=== PATIENT | male | born 1945 | race African-American/Black ===

== ENCOUNTER 2016-12-14 23:58 | Emergency (ER) | payer MEDICARE, OTHER ==
[~2016-12-14] VITALS: Ht 182.9 cm; Wt 60.8 kg
[~2016-12-14 23:58] MED LIST: ALBU8.5H3 INH; ALBU8.5H5 INH; FAMO-18 PO; HYDR-762 PO; PRED20TA PO; PRED50TA PO; UDROBDM PO
[2016-12-15 00:06] VITALS: Ht 182.9 cm; Wt 60.8 kg
[2016-12-15] MEDS ORDERED: ALBUTEROL 0.5% (NEB) 2.5 MG/0.5 ML AMP HHN STA ×2 (01:47→02:32)
[2016-12-15] MEDS ORDERED: IPRATROPIUM (NEB) 0.5 MG/2.5 ML AMP HHN ONE (02:00)
--- NOTE | 2016-12-15 02:43 | RADRPT ---
PROCEDURE: XR Chest. CLINICAL INDICATION: Cough. TECHNIQUE: Single frontal view of the chest was obtained COMPARISON: 10/06/2016. FINDINGS: The heart and mediastinum are within normal limits. Hyperinflation suggests a degree of COPD with changes of centrolobular emphysema. Linear lucency ov er a right upper lung likely represents a skin fold. Focal density over the left upper lung likely represents a remote fracture in the anterior left third rib, similar in appearance to the prior exam ination. There is no pleural effusion or pneumothorax. IMPRESSION: No acute disease. RPTAT: [facility] Physician Daria Date Time Electronically viewed and signed by Physician Daria on 12/15/2016 02:42 RS/
[2016-12-15] MEDS ORDERED: predniSONE 20 MG TAB PO ONE (03:00)
[2016-12-15] MEDS ORDERED: LEVO500T10 PO (04:04)
[2016-12-15] MEDS ORDERED: PRED20TA PO (04:05)
[2016-12-15] MEDS ORDERED: ALBU18HF INHALATION (04:05)
[2016-12-15 04:08] VITALS: BP 130/81; PULSE 81; RESP 20; TEMP 97.6
--- NOTE | 2016-12-15 04:09 | ERD ---
ER Documentation Chief Complaint Date/Time DATE: 12/15/16 TIME: 04:07 Chief Complaint sob x 2 days, cough x 2 days w/ yello colored mucus hx- copd HPI This 71-year-old male presents with cough 2 days of shortness of breath. States the has a history of COPD and thinks that is been wheezing as well. Denies any fevers or chills. Denies chest pain. ROS All systems reviewed and are negative except as per history of present illness. Medications Home Meds Active Scripts Prednisone* (Prednisone*) 20 Mg Tab, 40 MG PO DAILY, #4 TAB Prov:JESSICA OLIVAREZ DO 12/15/16 Albuterol Sulfate* (Ventolin HFA*) 18 Gm Hfa.aer.ad, 2 PUFF INHALATION Q4H, #2 INHALER Prov:JESSICA OLIVAREZ DO 12/15/16 Levofloxacin* (Levofloxacin*) 500 Mg Tablet, 500 MG PO DAILY, #7 TAB Prov:JESSICA OLIVAREZ 12/15/16 Albuterol Sulfate* (Proair HFA*) 8.5 Gm Hfa.aer.ad, 2 PUFF INH Q4, #1 INHALER Prov:KWAN GOOD PA-C 10/06/16 Prednisone* (Prednisone*) 20 Mg Tab, 40 MG PO DAILY for 4 Days, TAB Prov:KWAN GOOD PA-C 10/06/16 Famotidine* (Pepcid*) 20 Mg Tablet, 20 MG PO BID for 14 Days, #60 TAB Prov:JUDY MARAVILLA NP 05/12/16 Prednisone* (Prednisone*) 50 Mg Tablet, 60 MG PO DAILY for 10 Days, TAB Take prednisone 60 mg orally daily 2 days Then change to 40 mg daily 3 days then change to 20 mg daily 3 days Then change to 10 mg daily 3 days, then stop Prov:JUDY MARAVILLA NP 05/12/16 Hydrocodone Bit-Acetaminophen* ([place]*) 10-325 Mg Tablet, 1 TAB PO Q6 Y for PAIN , #12 TAB Prov:SHELL MCKEON MD 11/29/15 Guaifenesin-Dextromethorphan* (Robitussin* DM) 100MG/10MG/5ML Syrup, 5 ML PO Q6H Y for COUGH, #240 ML 0 Refills Prov:HERO LÓPEZ PA-C 11/21/15 Albuterol Sulfate* (Albuterol Sulfate* HFA) 8.5 Gm Hfa.aer.ad, 1-2 PUFF INH Q4 Y for SHORTNESS OF BREATH, #1 EA Prov:CASSY LIMON MD 06/09/15 Allergies Allergies: Coded Allergies: No Known Allergy (Unverified , 02/06/16) PMhx/Soc History of Surgery: No Anesthesia Reaction: No Hx Neurological Disorder: No Hx Respiratory Disorders: Yes (COPD, Asthma) Hx Cardiac Disorders: No Hx Psychiatric Problems: No Hx Miscellaneous Medical Probl: No Hx Alcohol Use: Yes Hx Substance Use: No Hx Tobacco Use: Yes Smoking Status: Former smoker Physical Exam Vitals Vital Signs Date Time Temp Pulse Resp B/P Pulse Ox O2 Delivery O2 Flow Rate FiO2 12/15/16 02:35 93 20 100 21 12/15/16 01:57 90 20 98 21 12/15/16 01:54 97.5 91 24 131/83 100 Room Air 12/15/16 00:06 98.3 92 20 126/64 96 Physical Exam Const: [] No distress Head: Atraumatic Eyes: Normal Conjunctiva ENT: Normal External Ears, Nose and Mouth. Neck: Full range of motion..~ No meningismus. Resp: Bilateral expiratory wheezes, no tachypnea or accessory muscle use Cardio: Regular rate and rhythm, no murmurs Ext: No cyanosis, or edema Neur: Awake and alert and oriented 3, no focal deficits Psych: Normal Mood and Affect Results 24 hrs Current Medications Medications (Trade) Dose Ordered Sig/Eduardo Route PRN Reason Start Time Stop Time Status Last Admin Dose Admin Albuterol (Proventil 0.5% (Neb)) 5 mg ONCE STAT N 12/15/16 01:47 12/15/16 01:50 DC 12/15/16 01:57 Ipratropium [place] (Atrovent 0.02% (Neb)) 0.5 mg ONCE ONCE HHN 12/15/16 02:00 12/15/16 02:01 DC 12/15/16 01:57 Albuterol (Proventil 0.5% (Neb)) 5 mg ONCE STAT HHN 12/15/16 02:32 12/15/16 02:33 DC 12/15/16 02:35 Prednisone (Prednisone) 60 mg ONCE ONCE PO 3/2/17 03:00 12/15/16 03:01 DC 12/15/16 02:55 Procedures/MDM EKG interpretation: Normal sinus rhythm rate of 89, normal axis, no ST-T wave changes concerning for acute ischemia Chest x-ray interpretation: I see no acute process. I see no pneumothorax, no pulmonary edema, no infiltrates, no fractures 71-year-old male with acute bronchitis causing COPD exacerbation. Is given albuterol and Atrovent treatments in the emergency room for wheezing. Also given a prednisone tablet. Shortness of breath was resolved he is feeling much better. Very low concern for any cardiac ischemia. Vital signs are stable. No signs of sepsis. Going to discharge the patient with albuterol inhaler as well as prednisone and 7 days of 500 mg Levaquin. Primary care follow-up in the next couple of days and return precautions given Departure Diagnosis: Primary Impression: COPD exacerbation Additional Impression: Bronchitis Condition: Stable Patient Instructions: Bronchitis With Wheezing (Adult), Copd Flare Referrals: [facility] YOU HAVE RECEIVED A MEDICAL SCREENING EXAM AND THE RESULTS INDICATE THAT YOU DO NOT HAVE A CONDITION THAT REQUIRES URGENT TREATMENT IN THE EMERGENCY DEPARTMENT. FURTHER EVALUATION AND TREATMENT OF YOUR CONDITION CAN WAIT UNTIL YOU ARE SEEN IN YOUR DOCTORS OFFICE WITHIN THE NEXT 1-2 DAYS. IT IS YOUR RESPONSIBILITY TO MAKE AN APPOINTMENT FOR FOLOW-UP CARE. IF YOU HAVE A PRIMARY DOCTOR --you should call your primary doctor and schedule an appointment IF YOU DO NOT HAVE A PRIMARY DOCTOR YOU CAN CALL OUR PHYSICIAN REFERRAL HOTLINE AT IF YOU CAN NOT AFFORD TO SEE A PHYSICIAN YOU CAN CHOSE FROM THE FOLLOWING [facility] [id number] [facility] [address] [facility] [facility] [address] [facility]. [facility] [address] [facility] [address] [facility]. [facility]. [address] Additional Instructions: Call your primary care doctor TOMORROW for an appointment during the next 1-2 days.See the doctor sooner or return here if your condition worsens before your appointment time. JESSICA OLIVAREZ DO Dec 15, 2016 04:09
== END 2016-12-15 04:16 | disposition home or self-care (01) ==
LOC: E/R 23:58
DX: J44.0 Chronic obstructive pulmonary disease with (acute) lower respiratory infection (principal); J20.9 Acute bronchitis, unspecified; J44.1 Chronic obstructive pulmonary disease with (acute) exacerbation; Z87.891 Personal history of nicotine dependence
CPT/HCPCS: 71010; 93005; 94640; 94664; 99284; J7512

== ENCOUNTER 2017-01-22 07:51 | Emergency (ER) | payer MEDICARE, OTHER ==
[~2017-01-22] VITALS: Wt 59.0 kg
[~2017-01-22 07:51] MED LIST changes: +ALBU18HF INHALATION; +LEVO500T10 PO
[2017-01-22] MEDS ORDERED: ALBUTEROL 0.083% (NEB) 2.5 MG/3 ML AMP HHN STA ×3 (08:04→09:35)
[2017-01-22] MEDS ORDERED: predniSONE 20 MG TAB PO ONE (08:30)
[2017-01-22] MEDS ORDERED: IPRATROPIUM (NEB) 0.5 MG/2.5 ML AMP HHN ONE (08:30)
[2017-01-22] MEDS ORDERED: PRED20TA PO (08:50)
[2017-01-22] MEDS ORDERED: FLUT12HF2 IH (08:50)
[2017-01-22] MEDS ORDERED: ALBU18HF INHALATION (08:50)
--- NOTE | 2017-01-22 09:45 | ERD ---
ER Documentation Chief Complaint Date/Time DATE: 01/22/17 TIME: 09:41 Chief Complaint asthma, wheezing, sob, no cp HPI This 71-year-old male presents emergency room for wheezing which she believes is a exacerbation of his COPD. He does not have any chest pain states that he has had no heart problems. He does have a primary care doctor. Currently his only regimen is rescue albuterol which she has a nebulizer at home for. I reviewed his EMR and see the does have many visits the emergency room for the same. ROS All systems reviewed and are negative except as per history of present illness. Medications Home Meds Active Scripts Prednisone* (Prednisone*) 20 Mg Tab, 40 MG PO DAILY for 3 Days, TAB Prov:JESSICA OLIVAREZ DO 01/22/17 Salmeterol Xinaf-Fluticasone* (Advair HFA*) 115/21 Aerosol Inhaler, 2 INH IH BID , #1 INHALER Prov:JESSICA OLIVAREZ DO 01/22/17 Albuterol Sulfate* (Ventolin HFA*) 18 Gm Hfa.aer.ad, 2 PUFF INHALATION Q4H, #1 INHALER Prov:JESSICA OLIVAREZ DO 01/22/17 Prednisone* (Prednisone*) 20 Mg Tab, 40 MG PO DAILY, #4 TAB Prov:JESSICA OLIVAREZ DO 12/15/16 Albuterol Sulfate* (Ventolin HFA*) 18 Gm Hfa.aer.ad, 2 PUFF INHALATION Q4H, #2 INHALER Prov:JESSICA OLIVAREZ DO 12/15/16 Levofloxacin* (Levofloxacin*) 500 Mg Tablet, 500 MG PO DAILY, #7 TAB Prov:JESSICA OLIVAREZ DO 12/15/16 Albuterol Sulfate* (Proair HFA*) 8.5 Gm Hfa.aer.ad, 2 PUFF INH Q4, #1 INHALER Prov:KWAN GOOD PA-C 10/06/16 Prednisone* (Prednisone*) 20 Mg Tab, 40 MG PO DAILY for 4 Days, TAB Prov:KWAN GOOD PA-C 10/06/16 Famotidine* (Pepcid*) 20 Mg Tablet, 20 MG PO BID for 14 Days, #60 TAB Prov:JUDY MARAVILLA NP 05/12/16 Prednisone* (Prednisone*) 50 Mg Tablet, 60 MG PO DAILY for 10 Days, TAB Take prednisone 60 mg orally daily 2 days Then change to 40 mg daily 3 days then change to 20 mg daily 3 days Then change to 10 mg daily 3 days, then stop Prov:JUDY MARAVILLA NP 05/12/16 Hydrocodone Bit-Acetaminophen* ([place]*) 10-325 Mg Tablet, 1 TAB PO Q6 Y for PAIN , #12 TAB Prov:SHELL MCKEON MD 11/29/15 Guaifenesin-Dextromethorphan* (Robitussin* DM) 100MG/10MG/5ML Syrup, 5 ML PO Q6H Y for COUGH, #240 ML 0 Refills Prov:HERO LÓPEZ PA-C 11/21/15 Albuterol Sulfate* (Albuterol Sulfate* HFA) 8.5 Gm Hfa.aer.ad, 1-2 PUFF INH Q4 Y for SHORTNESS OF BREATH, #1 EA Prov:CASSY LIMON MD 06/09/15 Allergies Allergies: Coded Allergies: No Known Allergy (Unverified , 02/06/16) PMhx/Soc Medical and Surgical Hx: pt denies Medical Hx, pt denies Surgical Hx History of Surgery: No Anesthesia Reaction: No Hx Neurological Disorder: No Hx Respiratory Disorders: Yes (Asthma, COPD) Hx Cardiac Disorders: No Hx Psychiatric Problems: No Hx Miscellaneous Medical Probl: No 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 Neck: Full range of motion..~ No meningismus. No JVD. Resp: Pronounced bilateral expiratory wheezes without accessory muscle use. Mild tachypnea. Able speak in almost sentences. Cardio: Regular rate and rhythm, no murmurs Skin: No petechiae or rashes Ext: No cyanosis, or edema Neur: Awake and alert and oriented 3, no focal deficits Psych: Normal Mood and Affect Results 24 hrs Current Medications Medications (Trade) Dose Ordered Sig/Eduardo Route PRN Reason Start Time Stop Time Status Last Admin Dose Admin Albuterol (Proventil 0.083% (Neb)) 10 mg ONCE STAT N 01/22/17 08:04 01/22/17 08:06 DC 01/22/17 08:27 Ipratropium [place] (Atrovent 0.02% (Neb)) 1 mg ONCE ONCE HHN 01/22/17 08:30 01/22/17 08:31 DC 01/22/17 08:26 Prednisone (Prednisone) 40 mg ONCE ONCE PO 01/22/17 08:30 01/22/17 08:31 DC 01/22/17 08:22 Albuterol (Proventil 0.083% (Neb)) 10 mg ONCE STAT N 01/22/17 09:28 01/22/17 09:29 DC 01/22/17 09:30 Albuterol (Proventil 0.083% (Neb)) 10 mg ONCE RESP THERAPY STAT [facility] 01/22/17 09:35 01/22/17 09:36 Procedures/MDM COPD exacerbation 71-year-old male. Because of advanced age I did obtain an EKG to rule out any obvious cardiac electrolyte abnormalities. Patient did have a nonischemic EKG. Was treated with albuterol and aspirin breathing treatment. Patient felt much better but he still had some wheezing. I then gave him a second breathing treatment of 10 mild grams albuterol. He also received by mouth prednisone. As he does have monthly visits the emergency room I believe it is important to increase his regimen for his moderate asthma from simply having rescue albuterol to preventative treatment as well. I'm going to discharge him with Advair [place] in addition to albuterol inhaler and 3 more days of prednisone. Instructed him to see his primary care doctor for evaluation of this new regimen and I believe will help the patient breathes easily and decreases visits the emergency room. I did tell him to return emergency room for any concerning changes is increasing shortness of breath or chest pain. \ EKG interpretation: Normal sinus rhythm rate of 100, normal axis, P2 partially distributed by artifact. No ST-T wave changes concerning for acute ischemia. Departure Diagnosis: Primary Impression: Asthma attack Condition: Stable Patient Instructions: Asthma, Acute (Adult) Additional Instructions: Call your primary care doctor TOMORROW for an appointment during the next 1-2 days.See the doctor sooner or return here if your condition worsens before your appointment time. JESSICA OLIVAREZ DO Jan 22, 2017 09:45
[2017-01-22 10:30] VITALS: BP 128/78; PULSE 112; RESP 16; TEMP 98.2
== END 2017-01-22 10:33 | disposition home or self-care (01) ==
LOC: FTE 07:51
DX: J45.901 Unspecified asthma with (acute) exacerbation (principal); J44.9 Chronic obstructive pulmonary disease, unspecified; R06.02 Shortness of breath; Z87.891 Personal history of nicotine dependence
CPT/HCPCS: 93005; 94644; 94645; 99285; J7512

== ENCOUNTER 2017-03-02 17:25 | Emergency (ER) | payer MEDICARE, OTHER ==
[~2017-03-02] VITALS: Ht 177.8 cm; Wt 58.0 kg
[~2017-03-02 17:25] MED LIST changes: +FLUT12HF2 IH
[2017-03-02 17:48] VITALS: Ht 177.8 cm; Wt 58.0 kg
[2017-03-02] MEDS ORDERED: ALBUTEROL 0.5% (NEB) 2.5 MG/0.5 ML AMP INH STA (18:14)
[2017-03-02] MEDS ORDERED: IPRATROPIUM (NEB) 0.5 MG/2.5 ML AMP INH STA (18:14)
[2017-03-02] MEDS ORDERED: predniSONE 20 MG TAB PO STA (18:14)
--- NOTE | 2017-03-02 19:28 | ERD ---
ER Documentation Chief Complaint Date/Time DATE: 03/02/17 TIME: 19:25 Chief Complaint sob, coughing, wheezing x 2 days; HPI This is a 71-year-old male who presents to the emergency room for evaluation of shortness of breath and wheezing for the past 2 days. Patient does state he has a history of asthma and states that he ran out of his nebulizer medication. He does have an albuterol inhaler who presents to the ER for evaluation of the shortness of breath. He denies any fever or chest pain or palpitations ROS All systems reviewed and are negative except as per history of present illness. Medications Home Meds Active Scripts Prednisone* (Prednisone*) 20 Mg Tab, 40 MG PO DAILY for 3 Days, TAB Prov:JESSICA OLIVAREZ DO 01/22/17 Salmeterol Xinaf-Fluticasone* (Advair HFA*) 115/21 Aerosol Inhaler, 2 INH IH BID , #1 INHALER Prov:JESSICA OLIVAREZ DO 01/22/17 Albuterol Sulfate* (Ventolin HFA*) 18 Gm Hfa.aer.ad, 2 PUFF INHALATION Q4H, #1 INHALER Prov:JESSICA OLIVAREZ DO 01/22/17 Prednisone* (Prednisone*) 20 Mg Tab, 40 MG PO DAILY, #4 TAB Prov:JESSICA OLIVAREZ DO 12/15/16 Albuterol Sulfate* (Ventolin HFA*) 18 Gm Hfa.aer.ad, 2 PUFF INHALATION Q4H, #2 INHALER Prov:JESSICA OLIVAREZ DO 12/15/16 Levofloxacin* (Levofloxacin*) 500 Mg Tablet, 500 MG PO DAILY, #7 TAB Prov:JESSICA OLIVAREZ DO 12/15/16 Albuterol Sulfate* (Proair HFA*) 8.5 Gm Hfa.aer.ad, 2 PUFF INH Q4, #1 INHALER Prov:KWAN GOOD PA-C 10/06/16 Prednisone* (Prednisone*) 20 Mg Tab, 40 MG PO DAILY for 4 Days, TAB Prov:KWAN GOOD PA-C 10/06/16 Famotidine* (Pepcid*) 20 Mg Tablet, 20 MG PO BID for 14 Days, #60 TAB Prov:JUDY MARAVILLA NP 05/12/16 Prednisone* (Prednisone*) 50 Mg Tablet, 60 MG PO DAILY for 10 Days, TAB Take prednisone 60 mg orally daily 2 days Then change to 40 mg daily 3 days then change to 20 mg daily 3 days Then change to 10 mg daily 3 days, then stop Prov:JUDY MARAVILLA NP 05/12/16 Hydrocodone Bit-Acetaminophen* ([place]*) 10-325 Mg Tablet, 1 TAB PO Q6 Y for PAIN , #12 TAB Prov:SHELL MCKEON MD 11/29/15 Guaifenesin-Dextromethorphan* (Robitussin* DM) 100MG/10MG/5ML Syrup, 5 ML PO Q6H Y for COUGH, #240 ML 0 Refills Prov:HERO LÓPEZ PA-C 11/21/15 Albuterol Sulfate* (Albuterol Sulfate* HFA) 8.5 Gm Hfa.aer.ad, 1-2 PUFF INH Q4 Y for SHORTNESS OF BREATH, #1 EA Prov:CASSY LIMON MD 06/09/15 Allergies Allergies: Coded Allergies: No Known Allergy (Unverified , 02/06/16) PMhx/Soc Medical and Surgical Hx: pt denies Medical Hx History of Surgery: No Anesthesia Reaction: No Hx Neurological Disorder: No Hx Respiratory Disorders: Yes (Asthma, COPD) Hx Cardiac Disorders: No Hx Psychiatric Problems: No Hx Miscellaneous Medical Probl: No 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 EOMI. There is no scleral icterus. NECK: C-spine is soft and supple, there is no meningismus. There is no cervical lymphadenopathy. LUNGS: Wheezing auscultated in the bilateral upper and lower lobes, no rales or rhonchi HEART: Regular rate and rhythm, no murmurs, clicks, rubs or gallops. ABDOMEN: Soft, non-tender, non-distended. There are bowel sounds in all four quadrants. No rebound or guarding. EXTREMITIES: There is no peripheral cyanosis or edema. No focal swelling or erythema. NEUROLOGICAL: The patient moves all four extremities with 5/5 strength. Cranial nerves II - XII are intact. Normal gait. Alert and oriented SKIN: There is no apparent rash or petechiae. HEME/LYMPHATIC: There is no evidence of excessive bruising or lymphedema. PSYCHIATRIC: The patient does not appear anxious or depressed. Results 24 hrs Current Medications Medications (Trade) Dose Ordered Sig/Eduardo Route PRN Reason Start Time Stop Time Status Last Admin Dose Admin Albuterol (Proventil 0.5% (Neb)) 15 mg ONCE STAT INH 03/02/17 18:14 03/02/17 18:16 DC 03/02/17 18:46 Ipratropium [place] (Atrovent 0.02% (Neb)) 1 mg ONCE STAT INH 03/02/17 18:14 03/02/17 18:16 DC 03/02/17 18:46 Prednisone (Prednisone) 60 mg ONCE STAT PO 03/02/17 18:14 03/02/17 18:16 DC 03/02/17 18:37 Procedures/MDM This 71-year-old male presents to the emergency room for evaluation of shortness of breath. When I evaluated him he did have wheezing in upper and lower lobes bilaterally. The patient was given an hour-long breathing treatment with albuterol and Atrovent. He was also given prednisone. Upon my reevaluation the patient states she is feeling much better. His wheezing has improved drastically. He is in no respiratory distress, not hypoxic, not posturing. This patient will be discharged home with a prescription for ProAir inhaler, albuterol for his nebulizer, and prednisone. I advised him to return immediately to the ER if he were to develop any worsening shortness of breath and he verbalized understanding. Smoking Cessation Therapy: Pt. was lectured for greater than 3 minutes on the health risks of continued smoking and the benefits of cessation. Departure Diagnosis: Primary Impression: Asthma with acute exacerbation Additional Impressions: Tobacco abuse Tobacco abuse counseling Wheezing Condition: Stable FABRICE MORA DO March 02, 2017 19:28
[2017-03-02] MEDS ORDERED: ALBU2.5V3 NEB (19:29)
[2017-03-02] MEDS ORDERED: PRED20TA PO (19:29)
[2017-03-02] MEDS ORDERED: ALBU8.5H3 INH (19:29)
== END 2017-03-02 20:34 | disposition home or self-care (01) ==
LOC: FTE 17:25
DX: J45.901 Unspecified asthma with (acute) exacerbation (principal); F17.210 Nicotine dependence, cigarettes, uncomplicated; R06.2 Wheezing; J44.9 Chronic obstructive pulmonary disease, unspecified; Z71.6 Tobacco abuse counseling
CPT/HCPCS: 94644; 99284; J7512

== ENCOUNTER 2017-03-23 16:52 | Emergency (ER) | payer MEDICARE, OTHER ==
[~2017-03-23] VITALS: Ht 177.8 cm; Wt 57.0 kg
[~2017-03-23 16:52] MED LIST changes: +ALBU2.5V3 NEB
[2017-03-23 16:56] VITALS: Ht 177.8 cm; Wt 57.0 kg
[2017-03-23] MEDS ORDERED: ALBUTEROL 0.083% (NEB) 2.5 MG/3 ML AMP HHN STA (17:09)
[2017-03-23] MEDS ORDERED: IPRATROPIUM (NEB) 0.5 MG/2.5 ML AMP HHN ONE (17:30)
[2017-03-23] MEDS ORDERED: DEXAMETHASONE 10 MG/ML 1 ML INJ IM ONE (17:30)
--- NOTE | 2017-03-23 17:43 | RADRPT ---
PROCEDURE: Chest x-ray CLINICAL INDICATION: Shortness of breath TECHNIQUE: Chest single view COMPARISON: 12/15/2016 FINDINGS: The heart is normal in size. The pulmonary vessels are normal in caliber. There is mild atheroscle rotic aortic calcification. As before there is hyperinflation of the lungs suggesting underlying CO PD. Calcified granulomas now in the right lower lung. No acute infiltrates are identified. Costop hrenic angles are sharp. Bony thorax is unremarkable. IMPRESSION: No acute cardiopulmonary disease. Hyperinflation lungs suggesting COPD Old granulomatous disease RPTAT: HH .Jose Armando Olivas MD, Date Time Electronically viewed and signed by .Jose Armando Olivas MD, on 03/23/2017 17:42 .W/
[2017-03-23] MEDS ORDERED: FLUT12HF2 IH (18:38)
[2017-03-23] MEDS ORDERED: PRED20TA PO (18:39)
[2017-03-23 18:47] VITALS: BP 126/77; PULSE 110; RESP 22; TEMP 97.8
--- NOTE | 2017-03-23 23:33 | ERD ---
ER Documentation Chief Complaint Date/Time DATE: 03/23/17 TIME: 23:28 Chief Complaint C/O FEELING SOB, HX OF ASTHMA, USED INHALER AND MACHINE WITH NO RELIEF. HPI This is a 71-year-old male that presents to the ER with shortness of breath. Patient has a past medical history of COPD and asthma and tried his inhaler today and his nebulizing machine however he still feels short of breath. Patient has had a cough over the last week. Cough is dry and constant, worse at night. Patient denies any chest pain. He states that he has a lot of wheezing and it is difficult for him to take a deep breath in. Patient denies any fevers or chills. ROS 12 point review of systems was done, all negative except per HPI. Medications Home Meds Active Scripts Prednisone* (Prednisone*) 20 Mg Tab, 60 MG PO DAILY for 5 Days, TAB Prov:NASIR JONES C 03/23/17 Salmeterol Xinaf-Fluticasone* (Advair HFA*) 115/21 Aerosol Inhaler, 2 INH IH BID , #1 INHALER Prov:KARENNASIR C 03/23/17 Prednisone* (Prednisone*) 20 Mg Tab, 40 MG PO DAILY for 4 Days, TAB Prov:FABRICE MORA DO 03/02/17 Albuterol Sulfate* (Proair HFA*) 8.5 Gm Hfa.aer.ad, 2 PUFF INH Q4, #1 INHALER Prov:FABRICE MORA DO 03/02/17 Albuterol Sulfate* (Albuterol Sulfate* Neb) 0.083%-3 Ml Neb, 2.5 MG NEB Q4 Y for SHORTNESS OF BREATH, #30 EA Prov:FABRICE MORA DO 03/02/17 Prednisone* (Prednisone*) 20 Mg Tab, 40 MG PO DAILY for 3 Days, TAB Prov:JESSICA OLIVAREZ DO 01/22/17 Salmeterol Xinaf-Fluticasone* (Advair HFA*) 115/21 Aerosol Inhaler, 2 INH IH BID , #1 INHALER Prov:GREENJESSICA DO 01/22/17 Albuterol Sulfate* (Ventolin HFA*) 18 Gm Hfa.aer.ad, 2 PUFF INHALATION Q4H, #1 INHALER Prov:GREENJESSICA DO 01/22/17 Prednisone* (Prednisone*) 20 Mg Tab, 40 MG PO DAILY, #4 TAB Prov:JESSICA OLIVAREZ DO 12/15/16 Albuterol Sulfate* (Ventolin HFA*) 18 Gm Hfa.aer.ad, 2 PUFF INHALATION Q4H, #2 INHALER Prov:JESSICA OLIVAREZ DO 12/15/16 Levofloxacin* (Levofloxacin*) 500 Mg Tablet, 500 MG PO DAILY, #7 TAB Prov:JESSICA OLIVAREZ DO 12/15/16 Albuterol Sulfate* (Proair HFA*) 8.5 Gm Hfa.aer.ad, 2 PUFF INH Q4, #1 INHALER Prov:KWAN GOOD PA-C 10/06/16 Prednisone* (Prednisone*) 20 Mg Tab, 40 MG PO DAILY for 4 Days, TAB Prov:KWAN GOOD PA-C 10/06/16 Famotidine* (Pepcid*) 20 Mg Tablet, 20 MG PO BID for 14 Days, #60 TAB Prov:JUDY MARAVILLA NP 05/12/16 Prednisone* (Prednisone*) 50 Mg Tablet, 60 MG PO DAILY for 10 Days, TAB Take prednisone 60 mg orally daily 2 days Then change to 40 mg daily 3 days then change to 20 mg daily 3 days Then change to 10 mg daily 3 days, then stop Prov:JUDY MARAVILLA NP 05/12/16 Hydrocodone Bit-Acetaminophen* ([place]*) 10-325 Mg Tablet, 1 TAB PO Q6 Y for PAIN , #12 TAB Prov:SHELL MCKEON MD 11/29/15 Guaifenesin-Dextromethorphan* (Robitussin* DM) 100MG/10MG/5ML Syrup, 5 ML PO Q6H Y for COUGH, #240 ML 0 Refills Prov:HERO LÓPEZ PA-C 11/21/15 Albuterol Sulfate* (Albuterol Sulfate* HFA) 8.5 Gm Hfa.aer.ad, 1-2 PUFF INH Q4 Y for SHORTNESS OF BREATH, #1 EA Prov:CASSY LIMON MD 06/09/15 Allergies Allergies: Coded Allergies: No Known Allergy (Unverified , 02/06/16) PMhx/Soc History of Surgery: No Anesthesia Reaction: No Hx Neurological Disorder: No Hx Respiratory Disorders: Yes (Asthma, COPD) Hx Cardiac Disorders: No Hx Psychiatric Problems: No Hx Miscellaneous Medical Probl: No 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 HEENT: Atraumatic. Conjunctivae are pink. Pupils equal, round, and reactive to light. Extraocular muscles are grossly intact. Bilateral tympanic membranes are clear with no evidence of erythema, effusion or dulling of the light reflex. The oropharynx is clear with no erythema or exudates. NECK: C-spine is soft and supple. There is no cervical lymphadenopathy. CHEST: Expiratory wheezes in all lung valdovinos. No rales rhonchi or crackles. HEART: Regular rate and rhythm. No murmurs, clicks, rubs or gallops. NEURO: Alert and oriented. Results 24 hrs Current Medications Medications (Trade) Dose Ordered Sig/Eduardo Route PRN Reason Start Time Stop Time Status Last Admin Dose Admin Albuterol (Proventil 0.083% (Neb)) 10 mg ONCE STAT HHN 03/23/17 17:09 03/23/17 17:11 DC 03/23/17 17:40 Ipratropium [place] (Atrovent 0.02% (Neb)) 0.5 mg ONCE ONCE HHN 03/23/17 17:30 03/23/17 17:31 DC 03/23/17 17:40 Dexamethasone (Decadron) 10 mg ONCE ONCE IM 03/23/17 17:30 03/23/17 17:31 DC 03/23/17 17:22 Procedures/MDM This is a 71-year-old male presents to the ER with shortness of breath. Patient has an extensive past medical history of COPD and asthma. Patient was given an hour-long nebulizing treatment in the ER and upon reexamination wheezing was much improved and he stated that he felt much better and was wanted to go home. Patient's chest x-ray was normal. At this time patient is not hypoxic or in any respiratory distress he is afebrile and well-appearing. Patient will be given a refill of his Advair and a short course of steroids for home. Patient is to follow-up with his primary care doctor within 1-2 days or return to ER sooner if symptoms worsen. My medical decision making was shared with the patient understands and agrees with plan. Departure Diagnosis: Primary Impression: Asthma Asthma severity: unspecified severity Asthma complication type: with acute exacerbation Qualified Code: J45.901 - Asthma with acute exacerbation, unspecified asthma severity Condition: Stable Patient Instructions: Asthma, Acute (Adult) Additional Instructions: Call your primary care doctor TOMORROW for an appointment during the next 1-2 days.See the doctor sooner or return here if your condition worsens before your appointment time. NASIR JONES Mar 23, 2017 23:33
== END 2017-03-23 18:47 | disposition home or self-care (01) ==
LOC: FTE 16:52
DX: J45.901 Unspecified asthma with (acute) exacerbation (principal); F17.210 Nicotine dependence, cigarettes, uncomplicated
CPT/HCPCS: 71010; 94644; J1100; 96372

== ENCOUNTER 2017-06-13 09:46 | Emergency (ER) | payer MEDICARE, OTHER ==
[~2017-06-13] VITALS: Wt 61.0 kg
[~2017-06-13 09:46] MED LIST changes: -FAMO-18 PO; +FAMO-96 PO
--- NOTE | 2017-06-13 13:19 | ERD ---
ER Documentation Chief Complaint Date/Time DATE: 06/13/17 TIME: 13:18 Chief Complaint FC removal HPI 9-year-old male presents requesting a Zaragoza catheter removal. He had placed 1 week ago at another hospital. Denies fevers, vomiting. He has a history of urinary retention in the past but none over the last year. Takes some unspecified medication for his prostate. ROS All systems reviewed and are negative except as per history of present illness. Medications Home Meds Active Scripts Prednisone* (Prednisone*) 20 Mg Tab, 60 MG PO DAILY for 5 Days, TAB Prov:NASIR JONES C 03/23/17 Salmeterol Xinaf-Fluticasone* (Advair HFA*) 115/21 Aerosol Inhaler, 2 INH IH BID , #1 INHALER Prov:NASIR JONES C 03/23/17 Prednisone* (Prednisone*) 20 Mg Tab, 40 MG PO DAILY for 4 Days, TAB Prov:FABRICE MORA DO 03/02/17 Albuterol Sulfate* (Proair HFA*) 8.5 Gm Hfa.aer.ad, 2 PUFF INH Q4, #1 INHALER Prov:FABRICE MORA DO 03/02/17 Albuterol Sulfate* (Albuterol Sulfate* Neb) 0.083%-3 Ml Neb, 2.5 MG NEB Q4 Y for SHORTNESS OF BREATH, #30 EA Prov:FABRICE MORA DO 03/02/17 Prednisone* (Prednisone*) 20 Mg Tab, 40 MG PO DAILY for 3 Days, TAB Prov:GREENJESSICA DO 01/22/17 Salmeterol Xinaf-Fluticasone* (Advair HFA*) 115/21 Aerosol Inhaler, 2 INH IH BID , #1 INHALER Prov:GREENJESSICA DO 01/22/17 Albuterol Sulfate* (Ventolin HFA*) 18 Gm Hfa.aer.ad, 2 PUFF INHALATION Q4H, #1 INHALER Prov:GREENNADINEJESSICA DO 01/22/17 Prednisone* (Prednisone*) 20 Mg Tab, 40 MG PO DAILY, #4 TAB Prov:GREENNADINEJESSICA DO 12/15/16 Albuterol Sulfate* (Ventolin HFA*) 18 Gm Hfa.aer.ad, 2 PUFF INHALATION Q4H, #2 INHALER Prov:JESSICA OLIVAREZ 12/15/16 Levofloxacin* (Levofloxacin*) 500 Mg Tablet, 500 MG PO DAILY, #7 TAB Prov:JESSICA OLIVAREZ 12/15/16 Albuterol Sulfate* (Proair HFA*) 8.5 Gm Hfa.aer.ad, 2 PUFF INH Q4, #1 INHALER Prov:KWAN GOOD PA-C 10/06/16 Prednisone* (Prednisone*) 20 Mg Tab, 40 MG PO DAILY for 4 Days, TAB Prov:KWAN GOOD PA-C 10/06/16 Famotidine* (Pepcid*) 20 Mg Tablet, 20 MG PO BID for 14 Days, #60 TAB Prov:JUDY MARAVILLA NP 05/12/16 Prednisone* (Prednisone*) 50 Mg Tablet, 60 MG PO DAILY for 10 Days, TAB Take prednisone 60 mg orally daily 2 days Then change to 40 mg daily 3 days then change to 20 mg daily 3 days Then change to 10 mg daily 3 days, then stop Prov:JUDY MARAVILLA NP 05/12/16 Hydrocodone Bit-Acetaminophen* ([place]*) 10-325 Mg Tablet, 1 TAB PO Q6 Y for PAIN , #12 TAB Prov:SHELL MCKEON MD 11/29/15 Guaifenesin-Dextromethorphan* (Robitussin* DM) 100MG/10MG/5ML Syrup, 5 ML PO Q6H Y for COUGH, #240 ML 0 Refills Prov:HERO LÓPEZ PA-C 11/21/15 Albuterol Sulfate* (Albuterol Sulfate* HFA) 8.5 Gm Hfa.aer.ad, 1-2 PUFF INH Q4 Y for SHORTNESS OF BREATH, #1 EA Prov:ACSSY LIMON MD 06/09/15 Allergies Allergies: Coded Allergies: No Known Allergy (Unverified , 02/06/16) PMhx/Soc History of Surgery: No Anesthesia Reaction: No Hx Neurological Disorder: No Hx Respiratory Disorders: Yes (Asthma, COPD) Hx Cardiac Disorders: No Hx Psychiatric Problems: No Hx Miscellaneous Medical Probl: No Hx Alcohol Use: Yes (LIGHT SOCIAL DRINKER) Hx Substance Use: No Hx Tobacco Use: Yes Smoking Status: Current some day smoker Physical Exam Vitals Vital Signs Date Time Temp Pulse Resp B/P Pulse Ox O2 Delivery O2 Flow Rate FiO2 06/13/17 10:20 98.0 95 20 117/97 98 Physical Exam Const: []Alert, [id number], pleasant Head: Atraumatic Eyes: Normal Conjunctiva ENT: Normal External Ears, Nose and Mouth. Neck: Full range of motion..~ No meningismus. Resp: Clear to auscultation bilaterally Cardio: Regular rate and rhythm, no murmurs Abd: Soft, non tender, non distended. Normal bowel sounds Skin: No petechiae or rashes Back: No midline or flank tenderness Ext: No cyanosis, or edema Neur: Awake and alert Psych: Normal Mood and Affect Procedures/MDM Zaragoza catheter removed without complications. Patient since history of urinary retention without current signs or symptoms to suggest acute abdomen, pyelonephritis, additional complications. Patient was discharged home with instructions to urinate frequently and follow-up neurology and primary care for further evaluation and treatment. Should return for fevers, vomiting, inability to urinate, new worsening symptoms. Departure Diagnosis: Primary Impression: Acute urinary retention Condition: Stable Referrals: JOHN URRUTIA MD [facility],DMITRY [place] MD Additional Instructions: Urinate frequently throughout day do not hold urine. See urology for persistent symptoms. Recheck otherwise for inability to urinate, fevers, vomiting, new symptoms. DALI DAVIS MD Jun 13, 2017 13:19
== END 2017-06-13 13:56 | disposition home or self-care (01) ==
LOC: FTE 09:46
DX: R33.9 Retention of urine, unspecified (principal); J45.909 Unspecified asthma, uncomplicated; J44.9 Chronic obstructive pulmonary disease, unspecified; F17.210 Nicotine dependence, cigarettes, uncomplicated
CPT/HCPCS: 99283

== ENCOUNTER 2017-07-31 23:59 | Emergency (ER) | payer MEDICARE, OTHER ==
[~2017-07-31] VITALS: Ht 175.3 cm; Wt 64.0 kg
[2017-08-01 00:05] VITALS: Ht 175.3 cm; Wt 64.0 kg
--- NOTE | 2017-08-01 01:18 | ERD ---
ER Documentation Chief Complaint Date/Time DATE: 08/01/17 TIME: 01:08 Chief Complaint genital burning and discharge HPI 72-year-old male who presents emergency department for dysuria, yellowish penile discharge for 3 days. He stated that he had a sexual contact with a girl that he met last week in [place]. He does not know if his sexual partner has symptoms. He insisted to be treated for STD. Denies headache, dizziness, blurred vision, neck pain, shoulder pain, back pain , abdominal pain, nausea, vomiting, constipation, dysuria, hematuria, trauma, difficulty walking, recent antibiotic use in the last 3 months, fever, chills. No known drug allergies. Past medical history of asthma. Denies surgical history. Medication: Reviewed. Social: Retired. Smokes 1 pack of cigarettes a day. Denies use of alcoholic beverages, use of illegal drugs. ROS All systems reviewed and are negative except as per history of present illness. Medications Home Meds Active Scripts Prednisone* (Prednisone*) 20 Mg Tab, 60 MG PO DAILY for 5 Days, TAB Prov:NASIR JONES C 03/23/17 Salmeterol Xinaf-Fluticasone* (Advair HFA*) 115/21 Aerosol Inhaler, 2 INH IH BID , #1 INHALER Prov:NASIR JONES 03/23/17 Prednisone* (Prednisone*) 20 Mg Tab, 40 MG PO DAILY for 4 Days, TAB Prov:FABRICE MORA DO 03/02/17 Albuterol Sulfate* (Proair HFA*) 8.5 Gm Hfa.aer.ad, 2 PUFF INH Q4, #1 INHALER Prov:FABRICE MORA DO 03/02/17 Albuterol Sulfate* (Albuterol Sulfate* Neb) 0.083%-3 Ml Neb, 2.5 MG NEB Q4 Y for SHORTNESS OF BREATH, #30 EA Prov:FABRICE MORA DO 03/02/17 Prednisone* (Prednisone*) 20 Mg Tab, 40 MG PO DAILY for 3 Days, TAB Prov:JESSICA OLIVAREZ DO 01/22/17 Salmeterol Xinaf-Fluticasone* (Advair HFA*) 115/21 Aerosol Inhaler, 2 INH IH BID , #1 INHALER Prov:JESSICA OLIVAREZ DO 01/22/17 Albuterol Sulfate* (Ventolin HFA*) 18 Gm Hfa.aer.ad, 2 PUFF INHALATION Q4H, #1 INHALER Prov:JESSICA OLIVAREZ DO 01/22/17 Prednisone* (Prednisone*) 20 Mg Tab, 40 MG PO DAILY, #4 TAB Prov:JESSICA OLIVAREZ DO 12/15/16 Albuterol Sulfate* (Ventolin HFA*) 18 Gm Hfa.aer.ad, 2 PUFF INHALATION Q4H, #2 INHALER Prov:JESSICA OLIVAREZ DO 12/15/16 Levofloxacin* (Levofloxacin*) 500 Mg Tablet, 500 MG PO DAILY, #7 TAB Prov:JESSICA OLIVAREZ DO 12/15/16 Albuterol Sulfate* (Proair HFA*) 8.5 Gm Hfa.aer.ad, 2 PUFF INH Q4, #1 INHALER Prov:KWAN GOOD PA-C 10/06/16 Prednisone* (Prednisone*) 20 Mg Tab, 40 MG PO DAILY for 4 Days, TAB Prov:KWAN GOOD PA-C 10/06/16 Famotidine* (Pepcid*) 20 Mg Tablet, 20 MG PO BID for 14 Days, #60 TAB Prov:JUDY MARAVILLA NP 05/12/16 Prednisone* (Prednisone*) 50 Mg Tablet, 60 MG PO DAILY for 10 Days, TAB Take prednisone 60 mg orally daily 2 days Then change to 40 mg daily 3 days then change to 20 mg daily 3 days Then change to 10 mg daily 3 days, then stop Prov:JUDY MARAVILLA NP 05/12/16 Hydrocodone Bit-Acetaminophen* ([place]*) 10-325 Mg Tablet, 1 TAB PO Q6 Y for PAIN , #12 TAB Prov:SHELL MCKEON MD 11/29/15 Guaifenesin-Dextromethorphan* (Robitussin* DM) 100MG/10MG/5ML Syrup, 5 ML PO Q6H Y for COUGH, #240 ML 0 Refills Prov:HERO LÓPEZ PA-C 11/21/15 Albuterol Sulfate* (Albuterol Sulfate* HFA) 8.5 Gm Hfa.aer.ad, 1-2 PUFF INH Q4 Y for SHORTNESS OF BREATH, #1 EA Prov:CASSY LIMON MD 06/09/15 Allergies Allergies: Coded Allergies: No Known Allergy (Unverified , 02/06/16) PMhx/Soc History of Surgery: No Anesthesia Reaction: No Hx Neurological Disorder: No Hx Respiratory Disorders: Yes (Asthma, COPD) Hx Cardiac Disorders: No Hx Psychiatric Problems: No Hx Miscellaneous Medical Probl: No Hx Alcohol Use: Yes (LIGHT SOCIAL DRINKER) Hx Substance Use: No Hx Tobacco Use: Yes Physical Exam Vitals Vital Signs Date Time Temp Pulse Resp B/P Pulse Ox O2 Delivery O2 Flow Rate FiO2 08/01/17 02:51 98.9 78 18 141/78 99 Room Air 08/01/17 00:05 97.4 98 18 124/65 97 Physical Exam Const: [] Head: Atraumatic Eyes: Normal Conjunctiva ENT: Normal External Ears, Nose and Mouth. Neck: Full range of motion..~ No meningismus. Resp: Clear to auscultation bilaterally Cardio: Regular rate and rhythm, no murmurs Abd: Soft, non tender, non distended. Normal bowel sounds. External genitalia : Equal hair distribution. No lesions. No vesicular lesions. No rashes. No redness. Penile: No discharge. No bleeding. Testicles: No swelling/redness/ discoloration/tenderness. Skin: No petechiae or rashes Back: No midline or flank tenderness Ext: No cyanosis, or edema Neur: Awake and alert Psych: Normal Mood and Affect Results 24 hrs Laboratory Tests Test 08/01/17 02:35 Urine Color YELLOW Urine Clarity CLEAR Urine pH 5.0 Urine Specific [place] 1.021 Urine Ketones NEGATIVEmg/dL Urine Nitrite NEGATIVEmg/dL Urine Bilirubin NEGATIVEmg/dL Urine Urobilinogen 1+mg/dL Urine Leukocyte Esterase TRACELeu/ul Urine Microscopic RBC 1/HPF Urine Microscopic WBC 5/HPF Urine Mucus FEW/HPF Urine Hemoglobin NEGATIVEmg/dL Urine Glucose NEGATIVEmg/dL Urine Total Protein NEGATIVEmg/dl Current Medications Medications (Trade) Dose Ordered Sig/Eduardo Route PRN Reason Start Time Stop Time Status Last Admin Dose Admin Azithromycin (Zithromax) 1,000 mg ONCE ONCE PO 08/01/17 01:30 08/01/17 01:31 DC 08/01/17 01:30 Ceftriaxone Sodium (Rocephin) 250 mg ONCE ONCE IM 08/01/17 01:30 08/01/17 01:31 DC 08/01/17 01:30 Lidocaine (Xylocaine 1% (Mdv) 20 ml) 20 ml STK-MED ONCE .ROUTE 08/01/17 02:44 08/01/17 02:45 DC Procedures/MDM 72-year-old male who presents emergency department for dysuria, yellowish penile discharge for 3 days. He stated that he had a sexual contact with a girl that he met last week in [place]. He does not know if his sexual partner has symptoms. He insisted to be treated for STD. Denies headache, dizziness, blurred vision, neck pain, shoulder pain, back pain , abdominal pain, nausea, vomiting, constipation, dysuria, hematuria, trauma, difficulty walking, recent antibiotic use in the last 3 months, fever, chills. No known drug allergies. Past medical history of asthma. Denies surgical history. Medication: Reviewed. Social: Retired. Smokes 1 pack of cigarettes a day. Denies use of alcoholic beverages, use of illegal drugs. Physical exam: External genitalia: Equal hair distribution. No lesions. No vesicular lesions. No rashes. No redness. Penile: No discharge. No bleeding. Testicles: No swelling/redness/discoloration/tenderness. Disease process was explained to the patient. He verbalized understanding and agreed with the diagnostic test, treatment, plan of care, follow-up care. Treatment: Ceftriaxone IM. Azithromycin 1 g p.o. Reevaluation: Denies abdominal pain, scrotal pain, penile pain. Differential diagnosis: STD Final diagnosis: Presumed STD Follow-up with primary care physician the next 24-48 hours. Come back here in the emergency department for any new symptoms or any worsening of symptoms. All questions and concerns are answered. Patient verbalized understanding and agreed with the plan of care. Hemodynamically stable on discharge. Departure Diagnosis: Primary Impression: STD exposure Additional Impression: STD (male) Condition: Stable Additional Instructions: Follow-up with primary care physician the next 24-48 hours. Come back here in the emergency department for any new symptoms or any worsening of symptoms. All questions and concerns are answered. Patient verbalized understanding and agreed with the plan of care. ROXANN BRYSON Aug 01, 2017 01:18
[2017-08-01] MEDS ORDERED: AZITHROMYCIN 250 MG TAB PO ONE (01:30)
[2017-08-01] MEDS ORDERED: CEFTRIAXONE 250 MG INJ IM ONE (01:30)
[2017-08-01] MEDS ORDERED: LIDOCAINE 1% (MDV) 20 ML INJ ONE (02:44)
[2017-08-01 02:51] VITALS: BP 141/78; PULSE 78; RESP 18; TEMP 98.9
[2017-08-01 03:08] LABS: ADD UMIC YES; UR ASCORBIC ACID NEGATIVE (NEGATIVE); UR BILIRUBIN (Dip) NEGATIVE (NEGATIVE); UR BLOOD (Dip) NEGATIVE (NEGATIVE); UR CLARITY CLEAR (CLEAR); UR COLOR YELLOW (YELLOW); UR GLUCOSE (Dip) NEGATIVE (NEGATIVE); UR KETONES (Dip) NEGATIVE (NEGATIVE); UR LEUKOCYTE ESTERASE (Dip) TRACE Leu/ul (NEGATIVE); UR MUCUS FEW /HPF (NONE SEEN); UR NITRITE (Dip) NEGATIVE (NEGATIVE); UR RBC 1 /HPF (0-5); UR SPECIFIC GRAVITY (Dip) 1.021 (1.003-1.030); UR TOTAL PROTEIN (Dip) NEGATIVE (NEGATIVE); UR UROBILINOGEN (Dip) 1+ mg/dL (NEGATIVE)
== END 2017-08-01 02:52 | disposition home or self-care (01) ==
LOC: FTE 23:59
DX: A64 Unspecified sexually transmitted disease (principal); J44.9 Chronic obstructive pulmonary disease, unspecified; Z87.891 Personal history of nicotine dependence
CPT/HCPCS: 81001; 87086; 87591; 96372; 99284; J0696

== ENCOUNTER 2017-10-07 17:59 | Emergency (ER) | payer MEDICARE, OTHER ==
[~2017-10-07] VITALS: Ht 172.7 cm; Wt 59.7 kg
[2017-10-07 18:02] VITALS: Ht 172.7 cm; Wt 59.7 kg
[2017-10-07] MEDS ORDERED: ALBUTEROL 0.083% (NEB) 2.5 MG/3 ML AMP NEB STA (18:23)
[2017-10-07] MEDS ORDERED: METHYLPREDNISOLONE 125 MG INJ IM STA (18:23)
[2017-10-07] MEDS ORDERED: IPRATROPIUM (NEB) 0.5 MG/2.5 ML AMP NEB STA ×2 (18:23→19:44)
--- NOTE | 2017-10-07 18:26 | ERD ---
ER Documentation Chief Complaint Chief Complaint Asthma exarb, x 10 am today HPI 72-year-old male presents here to emergency department for shortness of breath and wheezing that started this morning. Patient has history of asthma. Patient has been using his inhaler with only mild relief. Patient without any fever chills. Patient denies any chest pain or palpitations. Patient denies any dizziness. ROS All systems reviewed and are negative except as per history of present illness. Medications Home Meds Active Scripts Prednisone* (Prednisone*) 20 Mg Tab, 60 MG PO DAILY for 5 Days, TAB Prov:NASIR JONES C 03/23/17 Salmeterol Xinaf-Fluticasone* (Advair HFA*) 115/21 Aerosol Inhaler, 2 INH IH BID , #1 INHALER Prov:NASIR JONES C 03/23/17 Prednisone* (Prednisone*) 20 Mg Tab, 40 MG PO DAILY for 4 Days, TAB Prov:FABRICE MORA DO 03/02/17 Albuterol Sulfate* (Proair HFA*) 8.5 Gm Hfa.aer.ad, 2 PUFF INH Q4, #1 INHALER Prov:FABRICE MORA DO 03/02/17 Albuterol Sulfate* (Albuterol Sulfate* Neb) 0.083%-3 Ml Neb, 2.5 MG NEB Q4 Y for SHORTNESS OF BREATH, #30 EA Prov:FABRICE MORA DO 03/02/17 Prednisone* (Prednisone*) 20 Mg Tab, 40 MG PO DAILY for 3 Days, TAB Prov:GREENJESSICA DO 01/22/17 Salmeterol Xinaf-Fluticasone* (Advair HFA*) 115/21 Aerosol Inhaler, 2 INH IH BID , #1 INHALER Prov:GREENNADINEJESSICA DO 01/22/17 Albuterol Sulfate* (Ventolin HFA*) 18 Gm Hfa.aer.ad, 2 PUFF INHALATION Q4H, #1 INHALER Prov:GREENNADINEJESSICA DO 01/22/17 Prednisone* (Prednisone*) 20 Mg Tab, 40 MG PO DAILY, #4 TAB Prov:GREENNADINEJESSICA DO 12/15/16 Albuterol Sulfate* (Ventolin HFA*) 18 Gm Hfa.aer.ad, 2 PUFF INHALATION Q4H, #2 INHALER Prov:GREEN,JESSICA DO 12/15/16 Levofloxacin* (Levofloxacin*) 500 Mg Tablet, 500 MG PO DAILY, #7 TAB Prov:JESSICA OLIVAREZ DO 12/15/16 Albuterol Sulfate* (Proair HFA*) 8.5 Gm Hfa.aer.ad, 2 PUFF INH Q4, #1 INHALER Prov:KWAN GOOD PA-C 10/06/16 Prednisone* (Prednisone*) 20 Mg Tab, 40 MG PO DAILY for 4 Days, TAB Prov:KWAN GOOD PA-C 10/06/16 Famotidine* (Pepcid*) 20 Mg Tablet, 20 MG PO BID for 14 Days, #60 TAB Prov:JUDY MARAVILLA NP 05/12/16 Prednisone* (Prednisone*) 50 Mg Tablet, 60 MG PO DAILY for 10 Days, TAB Take prednisone 60 mg orally daily 2 days Then change to 40 mg daily 3 days then change to 20 mg daily 3 days Then change to 10 mg daily 3 days, then stop Prov:JUDY MARAVILLA NP 05/12/16 Hydrocodone Bit-Acetaminophen* ([place]*) 10-325 Mg Tablet, 1 TAB PO Q6 Y for PAIN , #12 TAB Prov:SHELL MCKEON MD 11/29/15 Guaifenesin-Dextromethorphan* (Robitussin* DM) 100MG/10MG/5ML Syrup, 5 ML PO Q6H Y for COUGH, #240 ML 0 Refills Prov:HERO LÓPEZ PA-C 11/21/15 Albuterol Sulfate* (Albuterol Sulfate* HFA) 8.5 Gm Hfa.aer.ad, 1-2 PUFF INH Q4 Y for SHORTNESS OF BREATH, #1 EA Prov:CASSY LIMON MD 06/09/15 Allergies Allergies: Coded Allergies: No Known Allergy (Unverified , 02/06/16) PMhx/Soc Medical and Surgical Hx: pt denies Medical Hx, pt denies Surgical Hx History of Surgery: No Anesthesia Reaction: No Hx Neurological Disorder: No Hx Respiratory Disorders: Yes (asthma) Hx Cardiac Disorders: No Hx Psychiatric Problems: No Hx Miscellaneous Medical Probl: No Hx Alcohol Use: Yes (occassioanl) Hx Substance Use: No Hx Tobacco Use: No FmHx Family History: No coronary disease, No diabetes, No other Physical Exam Vitals Vital Signs Date Time Temp Pulse Resp B/P Pulse Ox O2 Delivery O2 Flow Rate FiO2 10/07/17 20:00 94 22 96 21 10/07/17 18:57 89 22 97 21 10/07/17 18:02 98.9 96 20 129/91 97 Physical Exam GENERAL: The patient is well developed and appropriate for usual state of health, in no apparent distress. CHEST: Diffuse wheezing bilaterally. There are no rales, wheezes or rhonchi. HEART: Regular rate and rhythm. No murmurs, clicks, rubs or gallops. No S3 or S4. ABDOMEN: Soft, nontender and nondistended. Good bowel sounds. No rebound or guarding. No gross peritonitis. No gross organomegaly or masses. No Castro sign or McBurney point tenderness. BACK: No midline or flank tenderness. EXTREMITIES: Equal pulses bilaterally. There is no peripheral clubbing, cyanosis or edema. No focal swelling or erythema. Full range of motion. Grossly neurovascularly intact. NEURO: Alert and oriented. Cranial nerves 2-12 intact. Motor strength in all 4 extremities with 5/5 strength. Sensation grossly intact. Normal speech and gait. SKIN: There is no apparent rash or petechia. The skin is warm and dry. HEMATOLOGIC AND LYMPHATIC: There is no evidence of excessive bruising or lymphedema. No gross cervical, axillary, or inguinal lymphadenopathy. Results 24 hrs Current Medications Medications (Trade) Dose Ordered Sig/Eduardo Route PRN Reason Start Time Stop Time Status Last Admin Dose Admin Albuterol (Proventil 0.083% (Neb)) 5 mg ONCE STAT NEB 10/07/17 18:23 10/07/17 18:24 DC 10/07/17 18:57 Ipratropium [place] (Atrovent 0.02% (Neb)) 0.5 mg ONCE STAT NEB 10/07/17 18:23 10/07/17 18:24 DC 10/07/17 18:57 Methylprednisolone Sodium Succinate (Solu-Medrol) 125 mg ONCE STAT IM 10/07/17 18:23 10/07/17 18:24 DC 10/07/17 19:26 Ipratropium [place] (Atrovent 0.02% (Neb)) 0.5 mg ONCE STAT NEB 10/07/17 19:44 10/07/17 19:45 DC 10/07/17 20:00 Albuterol (Proventil 0.5% (Neb)) 10 mg ONCE STAT INH 10/07/17 19:44 10/07/17 19:45 DC 10/07/17 20:00 Breathing treatment of albuterol and Atrovent was given here in emergency department, after treatment, patient's lungs sounds are clear and patient's oxygenation is better. Patient verbalized feeling much better. Solu-Medrol IM injection PROCEDURE: XR Chest. CLINICAL INDICATION: Asthma exacerbation TECHNIQUE: Portable single view of the chest COMPARISON: 03/23/2017 FINDINGS: The heart size appears within normal limits. Aortic calcification is seen. Calcified granuloma of the right lung base is seen. There are calcified right hilar nodes. The lungs appear slightly hyperinflated. No focal infiltrate, pleural effusion, or overt congestive heart failure is seen. No definite acute bony abnormality. IMPRESSION: No focal infiltrate. Prior granulomatous disease. Mild hyperinflation. Aortic atherosclerosis. RPTAT: HLBE nAgelica Edouard Physician Date Time Electronically viewed and signed by Angelica Edouard Physician on 10/07/2017 19 :00 LE/ CC: EMELI MUSTAFA SCRAP CHARGER Procedures/MDM Medical Decision Making: Patient symptoms are most likely consistent with asthma exacerbation with acute bronchitis.. There is low suspicion for Pneumonia at this time since patients lungs sounds are clear, patient O2 saturation is normal and patient doesnt show any respiratory distress. Patient s chest xray doesnt show infiltrates or any other cardiopulmonary emergencies at this time. There is low suspicion for other cardiopulmonary emergencies at this time such as CHF, Pulmonary Embolism, Pneumothorax, Aortic Aneurysm or any other cardiopulmonary emergencies at this time. There is low suspicion for sepsis. Patient appears well and is hemodynamically stable. Disposition: Home. Condition: Stable Prescriptions: Prednisone, guaifenesin DM, albuterol Zyrtec Instructions: Patient is advised to take medications as prescribed. Patient is advised to rest. Patient advised to increase fluid intake, do humidifier at home and if possible, do salt water gargles. Patient is advised that if symptoms are worse, shortness of breath, uncontrolled fever, stridor, vomiting, worst signs and symptoms to return to emergency department immediately. Otherwise, patient is advised to follow up with primary doctor in 5-7 days. Disclaimer: Inadvertent spelling and grammatical errors are likely due to EHR/ dictation software use and do not reflect on the overall quality of patient care. Also, please note that the electronic time recorded on this note does not necessarily reflect the actual time of the patient encounter. Departure Diagnosis: Primary Impression: Asthma with status asthmaticus Asthma severity: unspecified severity Asthma persistence: unspecified Qualified Code: J45.902 - Asthma with status asthmaticus, unspecified asthma severity, unspecified whether persistent Additional Impression: Acute bronchitis Bronchitis organism: unspecified organism Qualified Code: J20.9 - Acute bronchitis, unspecified organism Condition: Stable Patient Instructions: Bronchitis With Wheezing (Adult) Additional Instructions: Patient is advised to take medications as prescribed. Patient is advised to rest. Patient advised to increase fluid intake, do humidifier at home and if possible, do salt water gargles. Patient is advised that if symptoms are worse, shortness of breath, uncontrolled fever, stridor, vomiting, worst signs and symptoms to return to emergency department immediately. Otherwise, patient is advised to follow up with primary doctor in 5-7 days. EMELI MUSTAFA NP Oct 07, 2017 18:26
--- NOTE | 2017-10-07 19:00 | RADRPT ---
PROCEDURE: XR Chest. CLINICAL INDICATION: Asthma exacerbation TECHNIQUE: Portable single view of the chest COMPARISON: 03/23/2017 FINDINGS: The heart size appears within normal limits. Aortic calcification is seen. Calcified granuloma of th e right lung base is seen. There are calcified right hilar nodes. The lungs appear slightly hyperinf lated. No focal infiltrate, pleural effusion, or overt congestive heart failure is seen. No definite acute bony abnormality. IMPRESSION: No focal infiltrate. Prior granulomatous disease. Mild hyperinflation. Aortic atherosclerosis. RPTAT: HLBE Physician Deneen Date Time Electronically viewed and signed by Angelica Edouard Physician on 10/07/2017 19:00 LE/
[2017-10-07] MEDS ORDERED: ALBUTEROL 0.5% (NEB) 2.5 MG/0.5 ML AMP INH STA (19:44)
[2017-10-07] MEDS ORDERED: PRED50TA PO (20:52)
[2017-10-07] MEDS ORDERED: ALBU2.5V3 NEB (20:52)
[2017-10-07] MEDS ORDERED: ALBU8.5H3 INH (20:52)
[2017-10-07] MEDS ORDERED: GUAI120S26 PO (20:52)
[2017-10-07 21:01] VITALS: BP 131/65; PULSE 75; RESP 16; TEMP 98.4
== END 2017-10-07 21:03 | disposition home or self-care (01) ==
LOC: FTE 17:59
DX: J45.902 Unspecified asthma with status asthmaticus (principal); J20.9 Acute bronchitis, unspecified
CPT/HCPCS: 71010; 94644; 94664; 96372; 99284; J2930

== ENCOUNTER 2017-10-28 05:59 | Emergency (ER) | END 2017-10-28 10:13 | disposition home or self-care (01) ==

== ENCOUNTER 2017-12-20 23:22 | Emergency (ER) | END 2017-12-21 00:13 | disposition left against medical advice (07) ==

== ENCOUNTER 2018-01-23 22:05 | Emergency (ER) | END 2018-01-24 04:28 | disposition home or self-care (01) ==

== ENCOUNTER 2018-05-26 12:31 | Emergency (ER) | END 2018-05-26 14:39 | disposition home or self-care (01) ==

== ENCOUNTER 2018-07-06 14:11 | Emergency (ER) | END 2018-07-06 16:28 | disposition home or self-care (01) ==

== ENCOUNTER 2018-07-21 17:49 | Emergency (ER) | END 2018-07-21 20:52 | disposition home or self-care (01) ==

== ENCOUNTER 2018-12-16 10:57 | Emergency (ER) | payer MEDICARE, OTHER ==
[~2018-12-16] VITALS: Ht 170.2 cm; Wt 55.8 kg
[~2018-12-16 10:57] MED LIST changes: -ALBU8.5H3 INH; -ALBU8.5H5 INH; +ALBU8.5H8 INH; +CHOL200056 PO; -FAMO-96 PO; -FLUT12HF2 IH; -HYDR-762 PO; -LEVO500T10 PO; -PRED50TA PO; +TAMS0.4C2 PO; -UDROBDM PO
[2018-12-16 11:01] VITALS: Ht 170.2 cm; Wt 55.8 kg
[2018-12-16] MEDS ORDERED: ALBUTEROL 0.5% (NEB) 2.5 MG/0.5 ML AMP INH STA (11:34)
[2018-12-16] MEDS ORDERED: DEXAMETHASONE 10 MG/ML 1 ML INJ IV STA (11:34)
[2018-12-16] MEDS ORDERED: MAGNESIUM SULFATE 2 GM/50 ML 50 ML IVPB STA (11:34)
[2018-12-16] MEDS ORDERED: SOD CHLORIDE 0.9% 1,000 ML IV STA (11:34)
[2018-12-16] MEDS ORDERED: IPRATROPIUM (NEB) 0.5 MG/2.5 ML AMP INH STA (11:34)
[2018-12-16] MEDS ORDERED: ALBU18HF INHALATION (12:59)
--- NOTE | 2018-12-16 13:32 | ERD ---
ER Documentation Chief Complaint Chief Complaint asthma, short relief w/home tx, HPI 73-year-old gentleman history of asthma who presents to the emergency room with shortness of breath. He states his normal triggers weather. He denies any fevers or chills but he does have a slight cough that is dry nonproductive. He denies any chest pain or pleuritic pain or significant shortness of breath. Patient also states that approximately 1 week ago he fell and hit his head. He was evaluated with a negative CT and he denies any current symptoms. He states that healing hematoma to the left forehead. ROS All systems reviewed and are negative except as per history of present illness. Medications Home Meds Active Scripts Albuterol Sulfate* (Ventolin HFA*) 18 Gm Hfa.aer.ad, 2 PUFF INHALATION Q4H, #1 INHALER Prov:LUIS SNYDER MD 12/16/18 Albuterol Sulfate* (Ventolin HFA*) 18 Gm Hfa.aer.ad, 2 PUFF INHALATION Q4H, #1 INHALER Prov:IJM FALCON MD 10/19/18 Albuterol Sulfate* (Proair HFA*) 8.5 Gm Hfa.aer.ad, 2 PUFF INH Q4, #1 INHALER Prov:NASIR JONES 07/21/18 Prednisone* (Prednisone*) 20 Mg Tab, 60 MG PO DAILY for 5 Days, TAB Prov:NASIR JONES 07/21/18 Albuterol Sulfate* (Albuterol Sulfate* Neb) 0.083%-3 Ml Neb, 2.5 MG NEB Q4H, #30 VIAL Prov:NASIR JONES 07/06/18 Albuterol Sulfate* (Ventolin HFA*) 18 Gm Hfa.aer.ad, 2 PUFF INHALATION Q4H, #1 INHALER Prov:SHELL MCKEON MD 05/26/18 Prednisone* (Prednisone*) 20 Mg Tab, 60 MG PO DAILY for 4 Days, TAB Prov:SHELL MCKEON MD 05/26/18 Reported Medications Tamsulosin Hcl* (Tamsulosin Hcl*) 0.4 Mg Cap.er.24h, 0.4 MG PO HS, CAP 05/26/18 Albuterol Sulfate* (Albuterol Sulfate* Neb) 0.083%-3 Ml Neb, 2.5 MG NEB Q12H PRN for WHEEZING AND SOB, #30 VIAL 05/26/18 Cholecalciferol (Vitamin D3) (Vitamin D-3) 2,000 Unit Tablet, 2000 UNIT PO DAILY, TAB 05/26/18 Allergies Allergies: Coded Allergies: No Known Allergy (Unverified , 07/21/18) PMhx/Soc Medical and Surgical Hx: pt denies Surgical Hx History of Surgery: No Anesthesia Reaction: No Hx Neurological Disorder: No Hx Respiratory Disorders: Yes (asthma, COPD) Hx Cardiac Disorders: No Hx Psychiatric Problems: No Hx Miscellaneous Medical Probl: No Hx Alcohol Use: Yes (socially) Hx Substance Use: No Hx Tobacco Use: No Smoking Status: Never smoker FmHx Family History: No diabetes Physical Exam Vitals Vital Signs Date Temp Pulse Resp B/P (MAP) Pulse Ox O2 O2 Flow FiO2 Time Delivery Rate 12/16/18 99 20 98 21 11:50 12/16/18 105 21 141/99 99 Room Air 11:30 (113) 12/16/18 98.4 120 20 146/80 99 11:01 (102) Physical Exam General: Well developed, well nourished, no acute distress Head: Normocephalic, atraumatic. Eyes: Pupils equally reactive, EOM intact ENT: Moist mucous membranes Neck: Supple, no lymphadenopathy Respiratory: Wheezing diffusely, good aeration, no respiratory distress Cardiovascular: RRR, no murmurs, rubs, or gallops Abdominal: Soft, non-tender, non-distended, no peritoneal signs : Deferred MSK: No edema, no unilateral swelling, 5/5 strength Neurologic: Alert and oriented, moving all extremities, normal speech, no focal weakness, no cerebellar signs Skin: Old trauma noted to the forehead Psych: Normal mood Result Diagram: 12/16/18 1205 12/16/18 1205 Results 24 hrs Laboratory Tests Test 12/16/18 12:05 White Blood Count 6.5 10^3/ul Red Blood Count 4.30 10^6/ul Hemoglobin 12.6 g/dl Hematocrit 39.4 % Mean Corpuscular Volume 91.6 fl Mean Corpuscular Hemoglobin 29.3 pg Mean Corpuscular Hemoglobin Concent 32.0 g/dl Red Cell Distribution Width 14.6 % Platelet Count 240 10^3/UL Mean Platelet Volume 9.7 fl Immature Granulocytes % 0.500 % Neutrophils % 64.2 % Lymphocytes % 23.0 % Monocytes % 8.3 % Eosinophils % 3.4 % Basophils % 0.6 % Nucleated Red Blood Cells % 0.0 /100WBC Immature Granulocytes # 0.030 10^3/ul Neutrophils # 4.2 10^3/ul Lymphocytes # 1.5 10^3/ul Monocytes # 0.5 10^3/ul Eosinophils # 0.2 10^3/ul Basophils # 0.0 10^3/ul Nucleated Red Blood Cells # 0.0 10^3/ul Sodium Level 140 mmol/L Potassium Level 4.0 mmol/L Chloride Level 102 mmol/L Carbon Dioxide Level 30 mmol/L Anion Gap 8 Blood Urea Nitrogen 20 mg/dl Creatinine 1.12 mg/dl Est Glomerular Filtrat Rate mL/min mL/min Glucose Level 90 mg/dl Calcium Level 9.1 mg/dl Current Medications Medications Dose Sig/Eduardo Start Time Status Last (Trade) Ordered Route PRN Stop Time Admin Dose Reason Admin Sodium 1,000 ml @ Q1H STAT 12/16/18 DC 12/16/18 Chloride 1,000 mls/hr IV 11:34 12/16/18 12:06 12:33 Albuterol 10 mg ONCE STAT 12/16/18 DC 12/16/18 (Proventil INH 11:34 12/16/18 11:48 0.5% (Neb)) 11:35 Ipratropium 1 mg ONCE STAT 12/16/18 DC 12/16/18 [place] INH 11:34 12/16/18 11:48 (Atrovent 11:35 0.02% (Neb)) 10 mg ONCE STAT 12/16/18 DC 12/16/18 Dexamethasone IV 11:34 12/16/18 12:06 (Decadron) 11:35 Magnesium 50 ml @ 25 ONCE STAT 12/16/18 12/16/18 Sulfate mls/hr IVPB 11:34 12/16/18 12:06 13:33 Procedures/MDM EKG, MONITORS, & DIAGNOSTIC IMAGING: Chest x-ray: I reviewed and interpreted a 1 view of the chest Mediastinum: No enlargement Cardiac silhouette: No cardiomegaly Airspace: Clear lung valdovinos bilaterally without evidence of pneumothorax Bones: No evidence of fracture LAB INTERPRETATION: I reviewed the laboratory testing and it shows no evidence of acute process MEDICAL DECISION MAKING: The patient's presentation is consistent with asthma exacerbation likely secondary to environmental factors. Given the patient's age laboratory testing and chest x-ray imaging would be appropriate to rule out pneumonia. He has old evidence of head trauma without evidence of new injury or delayed hemorrhage. ER COURSE: * The patient's heart rate improved with breathing treatment and time. The patient's vital signs have normalized. * Patient was given Decadron, magnesium and albuterol * After the patient's hour-long treatment the patient has subjective and objective improvement. The patient has clear lung sounds, good oxygen saturation and feels comfortable at discharge. I believe it is reasonable. We discussed the risk benefits of this. The patient can safely be discharged and managed on an outpatient basis. * No indication for antibiotics. CONSULTATION: None DISPOSITION PLAN: The patient does not have an identifiable emergent medical condition that warrants inpatient hospitalization at this time. The patient is deemed safe for discharge with outpatient follow-up. We discussed follow up with the patient's primary care doctor within 24 to 48 hours as needed. We also discussed return to the emergency room for worsening symptoms or worsening condition. Outpatient referral: None required Discharge Medications: Ventolin, patient received Decadron in the emergency room setting Departure Diagnosis: Primary Impression: Asthma attack Asthma severity: moderate Asthma persistence: unspecified Qualified Codes: J45.901 - Unspecified asthma with (acute) exacerbation Condition: Stable Patient Instructions: Asthma, Acute (Adult) Referrals: [facility] YOU HAVE RECEIVED A MEDICAL SCREENING EXAM AND THE RESULTS INDICATE THAT YOU DO NOT HAVE A CONDITION THAT REQUIRES URGENT TREATMENT IN THE EMERGENCY DEPARTMENT. FURTHER EVALUATION AND TREATMENT OF YOUR CONDITION CAN WAIT UNTIL YOU ARE SEEN IN YOUR DOCTORS OFFICE WITHIN THE NEXT 1-2 DAYS. IT IS YOUR RESPONSIBILITY TO MAKE AN APPOINTMENT FOR [facility]. IF YOU HAVE A PRIMARY DOCTOR --you should call your primary doctor and schedule an appointment IF YOU DO NOT HAVE A PRIMARY DOCTOR YOU CAN CALL OUR PHYSICIAN REFERRAL HOTLINE AT IF YOU CAN NOT AFFORD TO SEE A PHYSICIAN YOU CAN CHOSE FROM THE FOLLOWING [facility] [address] [facility]. [facility] [address] [facility] [address] [facility] [address] [facility] [facility] [address] [facility]. [facility]. [address] [facility]. [facility] YOU HAVE RECEIVED A MEDICAL SCREENING EXAM AND THE RESULTS INDICATE THAT YOU DO NOT HAVE A CONDITION THAT REQUIRES URGENT TREATMENT IN THE EMERGENCY DEPARTMENT. FURTHER EVALUATION AND TREATMENT OF YOUR CONDITION CAN WAIT UNTIL YOU ARE SEEN IN YOUR DOCTORS OFFICE WITHIN THE NEXT 1-2 DAYS. IT IS YOUR RESPONSIBILITY TO MAKE AN APPOINTMENT FOR [facility]-UP CARE. IF YOU HAVE A PRIMARY DOCTOR --you should call your primary doctor and schedule and appointment IF YOU DO NOT HAVE A PRIMARY DOCTOR YOU CAN CALL OUR PHYSICIAN REFERRAL HOTLINE AT . IF YOU CAN NOT AFFORD TO SEE A PHYSICIAN YOU CAN CHOSE FROM THE FOLLOWING [facility] INSTITUTIONS: [facility] [address] [place] [address] [facility] [address] [place] [address] [facility] + [facility] [address] [place] [address] Additional Instructions: Call your primary care doctor TOMORROW for an appointment during the next 1 WEEK.Tell the school secretary that you were referred from this facility.See the doctor sooner or return here if your condition worsens before your appointment time. LUIS SNYDER MD Dec 16, 2018 13:32
[2018-12-16 13:43] VITALS: BP 130/85; PULSE 99; RESP 16
== END 2018-12-16 14:10 | disposition home or self-care (01) ==
LOC: FTE 10:57 → E/R 14:10
DX: J45.901 Unspecified asthma with (acute) exacerbation (principal); J44.9 Chronic obstructive pulmonary disease, unspecified
CPT/HCPCS: 36415; 71045; 80048; 85025; 87400; 94644; 96374; 96375; 99284; J1100; J3475; J7030

== ENCOUNTER 2018-12-23 13:05 | Emergency (ER) | payer MEDICARE, OTHER ==
[~2018-12-23] VITALS: Wt 67.0 kg
[2018-12-23] MEDS ORDERED: ALBUTEROL 0.5% (NEB) 2.5 MG/0.5 ML AMP INH STA (15:00)
[2018-12-23] MEDS ORDERED: IPRATROPIUM (NEB) 0.5 MG/2.5 ML AMP INH STA (15:00)
[2018-12-23] MEDS ORDERED: METHYLPREDNISOLONE 125 MG INJ IV STA (15:00)
--- NOTE | 2018-12-23 16:17 | ERD ---
ER Documentation Chief Complaint Chief Complaint COUGH, SOB, HX OF ASTHMA, NO CP HPI This is a 73-year-old male with a past medical history of asthma/COPD who is presenting with concerns of a COPD exacerbation. The patient reports several days of cough, nasal congestion, progressive worsening shortness of breath and wheezing. The patient reports that this occurs often with changes in weather. Over the last few days, the patient does endorse a productive cough with yellow sputum. Typically, his cough is dry and nonproductive. He endorses chest tightness but no chest pain or pleuritic pain. The patient is not currently li ghtheaded. The patient reports that approximately 1-2 weeks ago, the patient did have a syncopal event where he hit his head. The patient was evaluated fully at that time, which included a CT of the head, which was negative. The patient does not endorse any sensation that he is going to syncopized now. The patient denies any fever or chills. He has not had any myalgias. He does not endorse flulike symptoms. The patient has had no headache or vision changes. The patient does not endorse neck or back pain. The patient denies dizziness. The patient denies nausea or vomiting. The patient denies abdominal pain. The patient denies changes to bowel movements or urination. The patient has had no focal deficits. The patient has had no weakness or numbness or tingling to the face or extremities. ROS All systems reviewed and are negative except as per history of present illness. Medications Home Meds Reported Medications Albuterol Sulfate* (Albuterol Sulfate* Neb) 0.083%-3 Ml Neb, 2.5 MG NEB BID PRN for WHEEZING AND SOB, #30 VIAL 12/23/18 Tamsulosin Hcl* (Tamsulosin Hcl*) 0.4 Mg Cap.er.24h, 0.4 MG PO HS, CAP 12/23/18 Albuterol Sulfate* (Ventolin HFA*) 18 Gm Hfa.aer.ad, 2 PUFF INHALATION Q4H, #1 INHALER 12/23/18 Discontinued Reported Medications Tamsulosin Hcl* (Tamsulosin Hcl*) 0.4 Mg Cap.er.24h, 0.4 MG PO HS, CAP 05/26/18 Albuterol Sulfate* (Albuterol Sulfate* Neb) 0.083%-3 Ml Neb, 2.5 MG NEB Q12H PRN for WHEEZING AND SOB, #30 VIAL 05/26/18 Cholecalciferol (Vitamin D3) (Vitamin D-3) 2,000 Unit Tablet, 2000 UNIT PO DAILY, TAB 05/26/18 Discontinued Scripts Albuterol Sulfate* (Ventolin HFA*) 18 Gm Hfa.aer.ad, 2 PUFF INHALATION Q4H, #1 INHALER Prov:LUIS SNYDER MD 12/16/18 Albuterol Sulfate* (Ventolin HFA*) 18 Gm Hfa.aer.ad, 2 PUFF INHALATION Q4H, #1 INHALER Prov:JIM FALCON MD 10/19/18 Albuterol Sulfate* (Proair HFA*) 8.5 Gm Hfa.aer.ad, 2 PUFF INH Q4, #1 INHALER Prov:NASIR JONES 07/21/18 Prednisone* (Prednisone*) 20 Mg Tab, 60 MG PO DAILY for 5 Days, TAB Prov:NASIR JONES 07/21/18 Albuterol Sulfate* (Albuterol Sulfate* Neb) 0.083%-3 Ml Neb, 2.5 MG NEB Q4H, #30 VIAL Prov:NASIR JONES 07/06/18 Albuterol Sulfate* (Ventolin HFA*) 18 Gm Hfa.aer.ad, 2 PUFF INHALATION Q4H, #1 INHALER Prov:SHELL MCKEON MD 05/26/18 Prednisone* (Prednisone*) 20 Mg Tab, 60 MG PO DAILY for 4 Days, TAB Prov:SHELL MCKEON MD 05/26/18 Allergies Allergies: Coded Allergies: No Known Allergy (Unverified , 12/23/18) PMhx/Soc History of Surgery: No Anesthesia Reaction: No Hx Neurological Disorder: No Hx Respiratory Disorders: Yes (asthma, COPD) Hx Cardiac Disorders: No Hx Psychiatric Problems: No Hx Miscellaneous Medical Probl: Yes (BPH) Hx Alcohol Use: Yes (socially) Hx Substance Use: No Hx Tobacco Use: No Smoking Status: Former smoker FmHx Family History: No diabetes Physical Exam Vitals Vital Signs Date Temp Pulse Resp B/P (MAP) Pulse Ox O2 O2 Flow FiO2 Time Delivery Rate 3/10/19 93 18 95 21 15:44 12/23/18 96 18 156/94 99 Room Air 15:27 (114) 12/23/18 98.7 121 20 169/86 97 13:09 (113) Physical Exam Const: No apparent distress, well-developed, well-nourished Head: Normocephalic, Atraumatic Eyes: Normal Conjunctiva. Extraocular movements intact. Pupils equal, round and reactive to light ENT: Normal External Ears, Nose and Mouth. Neck: Full range of motion. No meningismus. Resp: Mild increased work of breathing. Diffuse end expiratory wheezes. No rales or rhonchi Cardio: Regular rhythm. Mild tachycardia. No murmurs, rubs or gallops Abd: Soft, non tender, non distended. Normal bowel sounds Skin: No petechiae or rashes Back: No midline tenderness. No CVA tenderness Ext: No cyanosis, or edema Neur: Awake and alert, oriented 4. Cranial nerves intact. No facial droop. Normal strength, sensation and coordination. Psych: Normal Mood and Affect Result Diagram: 12/23/18 1509 12/23/18 1509 Results 24 hrs Laboratory Tests Test 12/23/18 15:09 White Blood Count 6.7 10^3/ul Red Blood Count 4.30 10^6/ul Hemoglobin 12.6 g/dl Hematocrit 39.6 % Mean Corpuscular Volume 92.1 fl Mean Corpuscular Hemoglobin 29.3 pg Mean Corpuscular Hemoglobin Concent 31.8 g/dl Red Cell Distribution Width 14.6 % Platelet Count 224 10^3/UL Mean Platelet Volume 10.2 fl Immature Granulocytes % 0.300 % Neutrophils % 58.0 % Lymphocytes % 26.3 % Monocytes % 7.8 % Eosinophils % 7.2 % Basophils % 0.4 % Nucleated Red Blood Cells % 0.0 /100WBC Immature Granulocytes # 0.020 10^3/ul Neutrophils # 3.9 10^3/ul Lymphocytes # 1.8 10^3/ul Monocytes # 0.5 10^3/ul Eosinophils # 0.5 10^3/ul Basophils # 0.0 10^3/ul Nucleated Red Blood Cells # 0.0 10^3/ul Sodium Level 142 mmol/L Potassium Level 4.3 mmol/L Chloride Level 106 mmol/L Carbon Dioxide Level 28 mmol/L Anion Gap 8 Blood Urea Nitrogen 16 mg/dl Creatinine 0.98 mg/dl Est Glomerular Filtrat Rate mL/min mL/min Glucose Level 94 mg/dl Calcium Level 9.0 mg/dl Troponin I < 0.012 ng/ml Current Medications Medications Dose Sig/Eduardo Start Time Status Last (Trade) Ordered Route PRN Stop Time Admin Dose Reason Admin Ipratropium 1.5 mg ONCE STAT 12/23/18 DC 12/23/18 [place] [facility] 15:00 15:36 (Atrovent 12/23/18 15:02 0.02% (Neb)) Albuterol 15 mg ONCE STAT 12/23/18 DC 12/23/18 (Proventil INH 15:00 15:43 0.5% (Neb)) 12/23/18 15:02 125 mg ONCE STAT 12/23/18 DC 12/23/18 Methylprednis IV 15:00 15:12 olone Sodium 12/23/18 15:02 Succinate (Solu-Medrol) Procedures/MDM MDM The patient's presentation warrants further investigation. Previous medical records, if available, were reviewed. LABS The patient's laboratory testing was obtained and reviewed. No emergent treatment was required unless described below. CBC: No E/o systemic infection or thrombocytopenia. Mild normocytic anemia, not emergent. Chemistry: No E/o severe acidosis or alkalosis or renal failure or diabetic ketoacidosis Troponin: No E/o acute ischemia EKG EKG read by me: Rate/Rhythm: Regular rate and rhythm at a rate of 92 bpm Intervals: Normal Bois D Arc: Normal Impression: No evidence of acute ischemia or arrhythmia IMAGING Imaging and Radiology interpretation reviewed. CXR FINDINGS: The heart is not enlarged. Mediastinum is not widened. There is calcification the wall of the aorta. No hilar masses seen. Lungs are clear of any infiltrates. There is no effusion or pneumothorax. The osseous structures appear normal. IMPRESSION: No evidence for active cardiopulmonary disease. Electronically viewed and signed by .Ronald Luong MD, on 12/23/2018 15:31 TREATMENT/DISPOSITION The patient presents with symptoms most consistent with an upper respiratory infection and an asthma/COPD exacerbation. The patient was treated with Solu- Medrol and nebulized albuterol and ipratropium. The patient was here approximately 1 week ago for similar symptoms. I encouraged the patient to follow-up with his primary care doctor who can help with longitudinal management of his disease process. The patient's chest xray does not reveal pneumonia or pneumothorax or pleural effusions or pulmonary edema. The patient does not have a widened mediastinum and does not have signs or symptoms concerning for thoracic aortic aneurysm or dissection. The patient does not have pneumomediastinum or signs concerning for esophageal tear or rupture. The patient has no clinical or radiographic signs of pericardial effusion or tamponade. The patient does not have pneumoperitoneum and I have decreased suspicion of viscus perforation as possible referred pain. The patient does not have a history of heart failure and I have low suspicion for this. The patient is not tachypneic or hypoxic. The patient is breathing comfortably and without pleuritic pain. The patient is not on hormonal therapy. The patient has no history of clotting or bleeding disorders. The patient has no calf tenderness. The patient has had no hemoptysis. I have decreased suspicion for PE. The patient's troponin and EKG are reassuring. I have low suspicion for acute coronary syndrome. Upon reevaluation of the patient, symptoms have improved. No emergent diagnoses were identified. At this time, I feel that the patient stable for discharge. The patient was instructed to follow-up with a primary care physician in 1-3 days. The patient will be given strict precautions with which to return to the emergency department. Prescriptions: Prednisone The patient's blood pressure was elevated at greater than 120/80 while in the emergency department. The patient was otherwise stable with no evidence of hyp ertensive urgency or emergency. The patient does not require admission for blood pressure control. I have discussed with the patient the risks of hypertension. I have instructed the patient to return to the ER for any new or worsening symptoms including chest pain, shortness of breath, headache, blurred vision, confusion, nausea, vomiting or LOC. I have advised the patient to follow up with the primary care physician for outpatient monitoring and treatment for hypertension in 1-3 days. Disclaimer: Inadvertent spelling and grammatical errors are likely due to EHR/dictation software use and do not reflect on the overall quality of patient care. Note that the electronic time recorded on this note does not necessarily reflect the actual time of the patient encounter. Departure Diagnosis: Primary Impression: COPD exacerbation Additional Impressions: Upper respiratory infection URI type: unspecified URI Qualified Codes: J06.9 - Acute upper respiratory infection, unspecified Shortness of breath Wheezing Normocytic anemia Condition: Stable Patient Instructions: Copd Flare Additional Instructions: Thank you for for coming to [facility] for your care today. Please ask your nurse or provider if you have questions about your care today and do not leave until all your questions have been answered. Please use any medications given as directed and follow-up with your doctor (or the doctor you were referred to) in the next 1-3 days. If you do not have a primary care doctor you may follow up at the [facility] (listed below). You may also use motrin and tylenol as needed for fever and/or pain unless instructed otherwise by your provider or nurse. Indications for more urgent follow-up have been discussed, but you may return to the Emergency Department at ANY time for any worrisome or worsening symptoms. If you have abdominal pain, please know that no test or exam you received is perfect and you should follow up within 8 hours for continued pain. If you had any imaging studies today, such as an X-Ray or CT Scan, these studies will be reviewed later by a radiologist. You will be called if there are important findings that were not identified today, so make sure the contact information you provided at registration is correct. If you received any narcotic pain control medicine today, such as Vicodin, Morphine or Dilaudid, your coordination and judgment may be affected for a number of hours. Please do not drive or operate heavy machinery, and you may want someone to assist you at home. If you were given a prescription for narco tic medication, be aware that it is very addictive- use sparingly and only if necessary. PLEASE SEEK FURTHER EVALUATION AND MANAGEMENT AT YOUR DOCTORS OFFICE WITHIN THE NEXT 1-3 DAYS. IT IS YOUR RESPONSIBILITY TO MAKE AN APPOINTMENT FOR FOLOW-UP CARE. IF YOU HAVE A PRIMARY DOCTOR, PLEASE CALL THEIR OFFICE TO SCHEDULE AN APPOINTMENT FOR FOLLOW UP. IF YOU DO NOT HAVE A PRIMARY DOCTOR YOU CAN CALL OUR PHYSICIAN REFERRAL HOTLINE AT IF YOU CAN NOT AFFORD TO SEE A PHYSICIAN YOU CAN CHOSE FROM THE FOLLOWING [facility] CL[facility]: [facility] [address] [facility] [address] [facility] [address] [facility] [address] [facility] [address] [facility]. [facility]. [address] VINOD ACE MD Dec 23, 2018 16:16
[2018-12-23] MEDS ORDERED: ALBU18HF INHALATION (16:21)
[2018-12-23] MEDS ORDERED: ALBU2.5V3 NEB (16:22)
[2018-12-23] MEDS ORDERED: TAMS0.4C2 PO (16:22)
[2018-12-23] MEDS ORDERED: PRED20TA PO (17:12)
[2018-12-23 17:28] VITALS: BP 146/88; PULSE 110; RESP 19
== END 2018-12-23 17:43 | disposition home or self-care (01) ==
LOC: E/R 13:05
DX: J44.1 Chronic obstructive pulmonary disease with (acute) exacerbation (principal); J06.9 Acute upper respiratory infection, unspecified; D64.9 Anemia, unspecified; J45.901 Unspecified asthma with (acute) exacerbation; Z87.891 Personal history of nicotine dependence
CPT/HCPCS: 36415; 71045; 80048; 84484; 85025; 93005; 94644; 96374; 99285; J2930; 94640

== ENCOUNTER 2019-01-05 10:07 | Emergency (ER) | payer MEDICARE, OTHER ==
[~2019-01-05] VITALS: Ht 180.3 cm; Wt 56.4 kg
[~2019-01-05 10:07] MED LIST changes: -ALBU8.5H8 INH; -CHOL200056 PO
[2019-01-05 10:43] VITALS: RESP 20; Ht 180.3 cm; Wt 56.4 kg
[2019-01-05] MEDS ORDERED: ALBUTEROL 0.083% (NEB) 2.5 MG/3 ML AMP HHN STA (12:21)
[2019-01-05] MEDS ORDERED: DEXAMETHASONE 10 MG/ML 1 ML INJ IM ONE (12:30)
[2019-01-05] MEDS ORDERED: IPRATROPIUM (NEB) 0.5 MG/2.5 ML AMP HHN ONE (12:30)
[2019-01-05] MEDS ORDERED: AZIT250T PO (13:42)
[2019-01-05] MEDS ORDERED: PRED20TA PO (13:42)
--- NOTE | 2019-01-05 13:46 | ERD ---
ER Documentation Chief Complaint Chief Complaint wheezing, inhaler didn't help HPI 73-year-old male presents with a COPD history and wheezing for last 3 days. He is using his nebulizer at home without relief. He has productive cough but denies chest pain, fevers, abdominal pain, vomiting. ROS All systems reviewed and are negative except as per history of present illness. Medications Home Meds Active Scripts Azithromycin* (Zithromax*) 250 Mg Tablet, 250 MG PO .ZPACK DIRECTED, #6 TAB TAKE 500 MG (2 TABS) THE FIRST DAY THEN 250 MG (1 TAB) DAYS 2-5 Prov:DALI DAVIS MD 01/05/19 Prednisone* (Prednisone*) 20 Mg Tab, 40 MG PO DAILY for 6 Days, #9 TAB 40 mg by mouth for 3 days then 20 mg by mouth for 3 days. Prov:DALI DAVIS MD 01/05/19 Prednisone* (Prednisone*) 20 Mg Tab, 40 MG PO DAILY for 4 Days, TAB Prov:VINOD TOPETE MD 12/23/18 Reported Medications Albuterol Sulfate* (Albuterol Sulfate* Neb) 0.083%-3 Ml Neb, 2.5 MG NEB BID PRN for WHEEZING AND SOB, #30 VIAL 12/23/18 Tamsulosin Hcl* (Tamsulosin Hcl*) 0.4 Mg Cap.er.24h, 0.4 MG PO HS, CAP 12/23/18 Albuterol Sulfate* (Ventolin HFA*) 18 Gm Hfa.aer.ad, 2 PUFF INHALATION Q4H, #1 INHALER 12/23/18 Allergies Allergies: Coded Allergies: No Known Allergy (Unverified , 12/23/18) PMhx/Soc Medical and Surgical Hx: pt denies Surgical Hx History of Surgery: No Anesthesia Reaction: No Hx Neurological Disorder: No Hx Respiratory Disorders: Yes (asthma, COPD) Hx Cardiac Disorders: No Hx Psychiatric Problems: No Hx Miscellaneous Medical Probl: Yes (BPH) Hx Alcohol Use: Yes (socially) Hx Substance Use: No Hx Tobacco Use: No Smoking Status: Former smoker FmHx Family History: No diabetes, No coronary disease, No other Physical Exam Vitals Vital Signs Date Temp Pulse Resp B/P (MAP) Pulse Ox O2 O2 Flow FiO2 Time Delivery Rate 3/23/19 70 125/68 98 Room Air 13:55 (87) 01/05/19 112 20 96 21 12:38 01/05/19 99.1 112 20 148/77 96 10:43 (100) Physical Exam Const: No acute distress Head: Atraumatic Eyes: Normal Conjunctiva ENT: Normal External Ears, Nose and Mouth. TMs and oropharynx normal. Neck: Full range of motion. No meningismus. Resp: Clear to auscultation bilaterally . diffuse wheezing and rhonchi. Cardio: Regular rate and rhythm, no murmurs Abd: Soft, non tender, non distended. Normal bowel sounds Skin: No petechiae or rashes Back: No midline or flank tenderness Ext: No cyanosis, or edema Neur: Awake and alert Psych: Normal Mood and Affect Results 24 hrs Current Medications Medications Dose Sig/Eduardo Start Time Status Last (Trade) Ordered Route PRN Stop Time Admin Dose Reason Admin 10 mg ONCE ONCE 01/05/19 DC 01/05/19 Dexamethasone IM 12:30 12:30 (Decadron) 01/05/19 12:31 Albuterol 5 mg ONCE STAT 01/05/19 DC 01/05/19 (Proventil HHN 12:21 12:38 0.083% (Neb)) 01/05/19 12:23 Ipratropium 1 mg ONCE ONCE 01/05/19 DC 01/05/19 [place] HHN 12:30 12:38 (Atrovent 01/05/19 12:31 0.02% (Neb)) Procedures/MDM Chest X-ray 1V Interpreted by me: Soft Tissue: No acute abnormalities Bones: No acute abnormalities Mediastinum/Cardiac Silhouette/Lungs: No acute abnormalities. Impression- stable COPD. The patient given Decadron 10 mg IM and albuterol and Atrovent. Patient present s with no evidence of hypoxemia, signs of pneumonia, respiratory distress, cardiac chest pain.. Likely has uncomplicated COPD flare. Will treat with continuation of prednisone, Zithromax, continuation of albuterol, primary care follow-up and return precautions. The patient was stable with no new complaints during the ER course. Clinically, there is no current evidence to suggest meningitis, sepsis, acute abdomen, pneumonia, stroke, acute coronary syndrome, pulmonary embolism, aortic dissection or any other emergent condition appearing to require further evaluation or hospitalization. Patient counseled regarding my diagnostic impression and care plan. Prior to discharge all questions answered. Pt agrees with treatment plan and understands strict return p recautions. Pt is instructed to follow up with primary care provider within 24- 48 hours. Precautionary instructions provided including instructions to return to the ER if not improving or for any worsening or changing symptoms or concerns. Departure Diagnosis: Primary Impression: COPD (chronic obstructive pulmonary disease) COPD type: unspecified COPD Qualified Codes: J44.9 - Chronic obstructive pulmonary disease, unspecified Condition: Stable Patient Instructions: Copd Flare Referrals: NO PRIMARY,CARE PHYSICIAN (PCP) Additional Instructions: Chest x-ray read as normal. Recheck for new or worsening symptoms with primary doctor. Continue albuterol at home. DALI DAVIS MD Jan 05, 2019 13:46
[2019-01-05 13:55] VITALS: BP 125/68; PULSE 70
--- NOTE | 2019-01-06 11:20 | EN ---
Date/Time of Note Date/Time of Note DATE: 01/06/19 TIME: 11:16 ER Progress Note received call from pharmacist regarding concern fro repeated multiple prescriptions for prednisone from different hospitals. 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
== END 2019-01-05 13:57 | disposition home or self-care (01) ==
LOC: FTE 10:07
DX: J44.9 Chronic obstructive pulmonary disease, unspecified (principal); J45.901 Unspecified asthma with (acute) exacerbation; Z87.891 Personal history of nicotine dependence
CPT/HCPCS: 71045; 94664; 96372; 99284; J1100

== ENCOUNTER 2019-02-13 08:45 | Emergency (ER) | payer MEDICARE, OTHER ==
[~2019-02-13] VITALS: Ht 177.8 cm; Wt 58.3 kg
[~2019-02-13 08:45] MED LIST changes: +AZIT250T PO
[2019-02-13 08:53] VITALS: Ht 177.8 cm; Wt 58.3 kg
--- NOTE | 2019-02-13 09:40 | ERD ---
ER Documentation Chief Complaint Chief Complaint abdominal pain w/urine retention HPI 73-year-old male history of asthma/COPD and prostatism presents to the ED with 1 day history of inability urinate with worsening, sharp, crampy, nonradiating suprapubic abdominal pain. No nausea, vomiting, diarrhea or constipation. Denies chest pain, palpitations or shortness of breath. No fevers or chills. ROS All systems reviewed and are negative except as per history of present illness. Medications Home Meds Reported Medications Albuterol Sulfate* (Albuterol Sulfate* Neb) 0.083%-3 Ml Neb, 2.5 MG NEB BID PRN for WHEEZING AND SOB, #30 VIAL 12/23/18 Albuterol Sulfate* (Ventolin HFA*) 18 Gm Hfa.aer.ad, 2 PUFF INHALATION Q4H, #1 INHALER 12/23/18 Discontinued Reported Medications Tamsulosin Hcl* (Tamsulosin Hcl*) 0.4 Mg Cap.er.24h, 0.4 MG PO HS, CAP 12/23/18 Discontinued Scripts Azithromycin* (Zithromax*) 250 Mg Tablet, 250 MG PO .ZPACK DIRECTED, #6 TAB TAKE 500 MG (2 TABS) THE FIRST DAY THEN 250 MG (1 TAB) DAYS 2-5 Prov:DALI DAVIS MD 01/05/19 Prednisone* (Prednisone*) 20 Mg Tab, 40 MG PO DAILY for 6 Days, #9 TAB 40 mg by mouth for 3 days then 20 mg by mouth for 3 days. Prov:DALI DAVIS MD 01/05/19 Prednisone* (Prednisone*) 20 Mg Tab, 40 MG PO DAILY for 4 Days, TAB Prov:VINOD TOPETE MD 12/23/18 Allergies Allergies: Coded Allergies: No Known Allergy (Unverified , 02/13/19) PMhx/Soc Reviewed History of Surgery: No Anesthesia Reaction: No Hx Neurological Disorder: No Hx Respiratory Disorders: Yes (asthma, COPD) Hx Cardiac Disorders: No Hx Psychiatric Problems: No Hx Miscellaneous Medical Probl: Yes (BPH) Hx Alcohol Use: Yes (4 beers/day) Hx Substance Use: No Hx Tobacco Use: Yes (1/2 pk/day) Smoking Status: Current every day smoker FmHx No cancer or stroke Physical Exam Vitals Vital Signs Date Temp Pulse Resp B/P (MAP) Pulse Ox O2 O2 Flow FiO2 Time Delivery Rate 02/13/19 98.1 98 16 127/82 100 Room Air 13:11 (97) 02/13/19 100 14 124/77 99 Room Air 11:19 (93) 02/13/19 98.3 130 16 127/86 98 Room Air 09:10 (100) 02/13/19 98.1 133 18 153/77 98 08:53 (102) Physical Exam Const: Moderate distress Head: Atraumatic Eyes: Normal Conjunctiva ENT: Normal External Ears, Nose and Mouth. Neck: Full range of motion. No meningismus. Resp: Breath sounds diminished bilaterally but clear without rales, rhonchi or wheezes. Cardio: Regular rate and rhythm, no murmurs Abd: Soft, suprapubic tenderness and distention. Normal bowel sounds. No rebound or guarding. Skin: No petechiae or rashes Back: No midline or flank tenderness Ext: No cyanosis, or edema Neur: Awake and alert Psych: Normal Mood and Affect Result Diagram: 02/13/19 1014 02/13/19 1014 Results 24 hrs Laboratory Tests Test 02/13/19 10:14 02/13/19 10:24 White Blood Count 7.7 10^3/ul Red Blood Count 3.83 10^6/ul Hemoglobin 11.2 g/dl Hematocrit 34.3 % Mean Corpuscular Volume 89.6 fl Mean Corpuscular Hemoglobin 29.2 pg Mean Corpuscular Hemoglobin Concent 32.7 g/dl Red Cell Distribution Width 14.6 % Platelet Count 201 10^3/UL Mean Platelet Volume 10.2 fl Immature Granulocytes % 0.400 % Neutrophils % 68.4 % Lymphocytes % 21.1 % Monocytes % 8.8 % Eosinophils % 0.9 % Basophils % 0.4 % Nucleated Red Blood Cells % 0.0 /100WBC Immature Granulocytes # 0.030 10^3/ul Neutrophils # 5.3 10^3/ul Lymphocytes # 1.6 10^3/ul Monocytes # 0.7 10^3/ul Eosinophils # 0.1 10^3/ul Basophils # 0.0 10^3/ul Nucleated Red Blood Cells # 0.0 10^3/ul Sodium Level 136 mmol/L Potassium Level 4.6 mmol/L Chloride Level 104 mmol/L Carbon Dioxide Level 23 mmol/L Anion Gap 9 Blood Urea Nitrogen 20 mg/dl Creatinine 1.12 mg/dl Est Glomerular Filtrat Rate mL/min mL/min Glucose Level 86 mg/dl Calcium Level 9.6 mg/dl Urine Color STRAW Urine Clarity CLEAR Urine pH 5.0 Urine Specific [place] 1.008 Urine Ketones NEGATIVE mg/dL Urine Nitrite NEGATIVE mg/dL Urine Bilirubin NEGATIVE mg/dL Urine Urobilinogen NEGATIVE mg/dL Urine Leukocyte Esterase NEGATIVE [place]/ul Urine Hemoglobin NEGATIVE mg/dL Urine Glucose NEGATIVE mg/dL Urine Total Protein NEGATIVE mg/dl Procedures/MDM DOCUMENTS REVIEWED: ED nurse, IBD, prior records LAB INTERPRETATION: CBC significant for mild anemia but no leukocytosis or thrombocytopenia. Chemistry unremarkable for electrolyte abnormalities or renal insufficiency. EKG: Time: 09:10. Simus tachycardia. Ventricular rate 128. Ectopy. Normal MI QRS. No acute ST segment elevation or depression. My interpretation which is limited due to baseline artifact. ED COURSE: Zaragoza catheter placed. Output: 650 cc REEXAMINATION/REEVALUATION: Time: 11:50. Pain resolved. Abdomen soft nontender. No rebound, guarding or signs of peritonitis there is MEDICAL DECISION MAKIN-year-old male history of asthma/COPD and prostatism presents to the ED with 1 day history of inability urinate with worsening, sharp, crampy, nonradiating suprapubic abdominal pain. A broad differential diagnosis was considered including but not limited to appendicitis, diverticulitis, bowel obstruction, neoplasm and abdominal aortic aneurysm. 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 Symptoms resolved after bladder decompression with Zaragoza catheter. No urinary tract infection with signs of prostatitis. Stable for discharge with precautionary instructions leg bag, and outpatient urology follow-up as counseled. Counseled patient[ and family] regarding diagnostic workup, diagnosis and need for followup. Understands to return to ED if symptoms recur, worsen or any other concerns. Departure Diagnosis: Primary Impression: Suprapubic pain, acute Additional Impression: Acute urinary retention Condition: Stable (Improved) SVEN RENAE MD February 13, 2019 09:40
[2019-02-13 13:11] VITALS: BP 127/82; PULSE 98; RESP 16
== END 2019-02-13 13:13 | disposition home or self-care (01) ==
LOC: E/R 08:45
DX: R10.30 Lower abdominal pain, unspecified (principal); J44.9 Chronic obstructive pulmonary disease, unspecified; F17.210 Nicotine dependence, cigarettes, uncomplicated
CPT/HCPCS: 51702; 80048; 81003; 85025; 93005; 99284; A4310

== ENCOUNTER 2019-03-07 16:07 | Emergency (ER) | payer MEDICARE, OTHER ==
[~2019-03-07] VITALS: Wt 78.0 kg
[~2019-03-07 16:07] MED LIST changes: -AZIT250T PO; -PRED20TA PO; -TAMS0.4C2 PO
[2019-03-07 16:11] VITALS: BP 140/78; PULSE 89; RESP 18
[2019-03-07] MEDS ORDERED: IBUP-1561 PO (18:17)
--- NOTE | 2019-03-22 06:06 | ERD ---
ER Documentation Chief Complaint Chief Complaint RIGHT HAND SWELLING/PAIN AFTER A FALL HPI 73-year-old male presenting to the emergency department complaining of moderate, constant, worse with movement right thumb pain after a fall which occurred 2 days ago. He denies any head injury or loss of consciousness or other symptoms at this time. ROS All systems reviewed and are negative except as per history of present illness. Medications Home Meds Active Scripts Ibuprofen* (Motrin*) 400 Mg Tab, 400 MG PO Q6, #30 TAB Prov:YAHIR LE PA-C 03/07/19 Reported Medications Albuterol Sulfate* (Albuterol Sulfate* Neb) 0.083%-3 Ml Neb, 2.5 MG NEB BID PRN for WHEEZING AND SOB, #30 VIAL 12/23/18 Albuterol Sulfate* (Ventolin HFA*) 18 Gm Hfa.aer.ad, 2 PUFF INHALATION Q4H, #1 INHALER 12/23/18 Allergies Allergies: Coded Allergies: No Known Allergy (Unverified , 02/13/19) PMhx/Soc History of Surgery: No Anesthesia Reaction: No Hx Neurological Disorder: No Hx Respiratory Disorders: Yes (asthma, COPD) Hx Cardiac Disorders: No Hx Psychiatric Problems: No Hx Miscellaneous Medical Probl: Yes (BPH) Hx Alcohol Use: Yes (4 beers/day) Hx Substance Use: No Hx Tobacco Use: Yes (1/2 pk/day) FmHx Family History: No diabetes Physical Exam Physical Exam Const: No acute distress Head: Atraumatic Eyes: Normal Conjunctiva ENT: Normal External Ears, Nose and Mouth. Neck: Full range of motion. No meningismus. Resp: No respiratory distress. Skin: No petechiae or rashes Back: No midline or flank tenderness Ext: Tenderness palpation over the MCP of the right thumb. No obvious deformity. Patient is neurovascularly intact distally. Neur: Awake and alert Psych: Normal Mood and Affect Results 24 hrs [place] [address] Radiology Main Line: [phone] DIAGNOSTIC IMAGING REPORT Patient: DILMA TEJEDA : 1945 Age: 73 Sex: M MR #: [id number] DOS: 03/07/19 0000 Ordering MD: YAHIR LE PA-C Location: E/R Room/Bed: PROCEDURE: XR right hand 3 views. CLINICAL INDICATION: Status post fall with right hand/wrist pain. TECHNIQUE: Frontal, lateral and oblique views of the right hand were performed. COMPARISON: Concurrent right wrist x-rays. FINDINGS: Diffuse bony demineralization. No evidence of acute fracture/malalignment. Mild degenerative changes of the first CMC and MCP joints with subchondral sclerosis and slight marginal osteophytosis. No joint effusion identified. No significant focal soft tissue edema identified. Severe atherosclerotic vascular calcifications. No identifiable retained radiopaque foreign body. IMPRESSION: 1. No evidence of acute fracture/malalignment. 2. 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 3. Atherosclerosis. RPTAT: HSAN Physician Julienne Date Time Electronically viewed and signed by Marleni Leigh Physician on 03/07/2019 18:06 xN/ CC: YAHIR LE PA-C [id number] [place] [address] Radiology Main Line: [phone] DIAGNOSTIC IMAGING REPORT Patient: DILMA TEJEDA : 1945 Age: 73 Sex: M MR #: [id number] DOS: 03/07/19 0000 Ordering MD: YAHIR LE PA-C Location: E/R Room/Bed: PROCEDURE: XR right wrist 3 views. CLINICAL INDICATION: Status post fall with right hand/wrist pain. TECHNIQUE: Frontal, lateral and oblique views of the right wrist were performed. COMPARISON: Concurrent right hand x-rays. FINDINGS: Diffuse bony demineralization. No evidence of acute fracture/malalignment. Mild degenerative changes of the radiocarpal articulation, first CMC and MCP joints with subchondral sclerosis and slight marginal osteophytosis. No joint effusion identified. No significant focal soft tissue edema identified. Severe atherosclerotic vascular calcifications. No identifiable retained radiopaque foreign body. IMPRESSION: 1. No evidence of acute fracture/malalignment. 2. Mild osteoarthritic changes of the radiocarpal articulation, first CMC and MCP joints. 3. Atherosclerosis. RPTAT: HSAN Physician Julienne Date Time Electronically viewed and signed by Marleni Leigh Physician on 03/07/2019 18:08 xN/ CC: YAHIR LE PA-C [id number] Procedures/MDM 73-year-old male presents to the emergency department with signs and symptoms most consistent with arthritis of the right thumb. There is no fractures or other acute abnormalities identified on x-ray. Patient was given copies of x- rays and he was stable and appropriate for discharge and further outpatient management. He was in agreement with the diagnosis, plan, need for follow-up, return precautions. Departure Diagnosis: Primary Impression: Pain of right thumb Condition: Fair Patient Instructions: What Is Arthritis? Referrals: [facility] YOU HAVE RECEIVED A MEDICAL SCREENING EXAM AND THE RESULTS INDICATE THAT YOU DO NOT HAVE A CONDITION THAT REQUIRES URGENT TREATMENT IN THE EMERGENCY DEPARTMENT. FURTHER EVALUATION AND TREATMENT OF YOUR CONDITION CAN WAIT UNTIL YOU ARE SEEN IN YOUR DOCTORS OFFICE WITHIN THE NEXT 1-2 DAYS. IT IS YOUR RESPONSIBILITY TO MAKE AN APPOINTMENT FOR FOLOW-UP CARE. IF YOU HAVE A PRIMARY DOCTOR --you should call your primary doctor and schedule an appointment IF YOU DO NOT HAVE A PRIMARY DOCTOR YOU CAN CALL OUR PHYSICIAN REFERRAL HOTLINE AT IF YOU CAN NOT AFFORD TO SEE A PHYSICIAN YOU CAN CHOSE FROM THE FOLLOWING [facility] [address] [facility] [address] [facility] [address] [facility] [address] [facility] [address] [facility] [address] Additional Instructions: Call your primary care doctor TOMORROW for an appointment during the next 1-2 days.See the doctor sooner or return here if your condition worsens before your appointment time. YAHIR LE PA-C Mar 22, 2019 06:06
== END 2019-03-07 18:08 | disposition home or self-care (01) ==
LOC: E/R 16:07
DX: M79.644 Pain in right finger(s) (principal); J45.909 Unspecified asthma, uncomplicated; Z87.891 Personal history of nicotine dependence

== ENCOUNTER 2019-05-14 20:57 | Emergency (ER) | payer MEDICARE, OTHER ==
[~2019-05-14] VITALS: Ht 177.8 cm; Wt 54.7 kg
[~2019-05-14 20:57] MED LIST changes: +IBUP-1561 PO; +PRED20TA PO
[2019-05-14 21:24] VITALS: BP 136/72; Ht 177.8 cm; Wt 54.7 kg
[2019-05-14] MEDS ORDERED: predniSONE 20 MG TAB PO STA (21:56)
[2019-05-14] MEDS ORDERED: ALBUTEROL 0.5% (NEB) 2.5 MG/0.5 ML AMP INH STA (21:56)
[2019-05-14 23:14] VITALS: PULSE 88; RESP 18
--- NOTE | 2019-05-20 13:53 | ERD ---
ER Documentation Chief Complaint Chief Complaint SOB SINCE THIS AM HX OF ASTHMA INHALER NOT HELPING NO WHEEZING 100% RA HPI 73-year-old male past medical history of asthma presents to the emergency department complaining of intermittent shortness of breath and wheezing for the past 2 days. He was using his rescue inhaler without significant relief. Symptoms are moderate at this time. He denies any dyspnea on exertion, chest pain, fevers, chills, or other symptoms at this time. ROS All systems reviewed and are negative except as per history of present illness. Medications Home Meds Active Scripts Ibuprofen* (Motrin*) 400 Mg Tab, 400 MG PO Q6, #30 TAB Prov:YAHIR LE PA-C 05/14/19 Prednisone* (Prednisone*) 20 Mg Tab, 40 MG PO DAILY for 4 Days, TAB Prov:YAHIR LE PA-C 05/14/19 Albuterol Sulfate* (Albuterol Sulfate* Neb) 0.083%-3 Ml Neb, 2.5 MG NEB Q4 PRN for SHORTNESS OF BREATH, #30 EA Prov:YAHIR LE PA-C 05/14/19 Albuterol Sulfate* (Ventolin HFA*) 18 Gm Hfa.aer.ad, 2 PUFF INHALATION Q4H, #1 INHALER Prov:YAHIR LE PA-C 05/14/19 Ibuprofen* (Motrin*) 400 Mg Tab, 400 MG PO Q6, #30 TAB Prov:YAHIR LE PA-C 03/07/19 Reported Medications Albuterol Sulfate* (Albuterol Sulfate* Neb) 0.083%-3 Ml Neb, 2.5 MG NEB BID PRN for WHEEZING AND SOB, #30 VIAL 12/23/18 Albuterol Sulfate* (Ventolin HFA*) 18 Gm Hfa.aer.ad, 2 PUFF INHALATION Q4H, #1 INHALER 12/23/18 Allergies Allergies: Coded Allergies: No Known Allergy (Unverified , 02/13/19) PMhx/Soc History of Surgery: No Anesthesia Reaction: No Hx Neurological Disorder: No Hx Respiratory Disorders: Yes (asthma, COPD) Hx Cardiac Disorders: No Hx Psychiatric Problems: No Hx Miscellaneous Medical Probl: Yes (BPH, TENDINITIS) Hx Alcohol Use: Yes (4 beers/day) Hx Substance Use: No Hx Tobacco Use: Yes (1/2 pk/day) Smoking Status: Current every day smoker FmHx Family History: No diabetes Physical Exam Physical Exam Const: No acute distress Head: Atraumatic Eyes: Normal Conjunctiva ENT: Normal External Ears, Nose and Mouth. Neck: Full range of motion. No meningismus. Resp: Scattered wheezes. No respiratory distress. No crackles. Cardio: Regular rate and rhythm, no murmurs Abd: Soft, non tender, non distended. Normal bowel sounds Skin: No petechiae or rashes Back: No midline or flank tenderness Ext: No cyanosis, or edema Neur: Awake and alert Psych: Normal Mood and Affect Results 24 hrs Current Medications Medications Dose Sig/Eduardo Start Time Status Last (Trade) Ordered Route PRN Stop Time Admin Dose Reason Admin Albuterol 10 mg ONCE STAT 05/14/19 DC 05/14/19 (Proventil INH 21:56 22:01 0.5% (Neb)) 05/14/19 21:57 Prednisone 60 mg ONCE STAT 05/14/19 DC 05/14/19 (Prednisone) PO 21:56 22:02 05/14/19 21:57 Procedures/MDM 73-year-old male presents the emergency department with signs and symptoms most consistent with acute asthma exacerbation. Patient had no respiratory distress on examination. He significantly benefited from albuterol breathing treatment in the department. Patient's respiratory status has stabilized while in the department and is appropriate for outpatient work up. Exam and work up not consistent w/ impending respiratory failure or cardiovascular collapse. Departure Diagnosis: Primary Impression: Asthma with acute exacerbation Condition: Fair Patient Instructions: Asthma, Acute (Adult) Referrals: [facility] YOU HAVE RECEIVED A MEDICAL SCREENING EXAM AND THE RESULTS INDICATE THAT YOU DO NOT HAVE A CONDITION THAT REQUIRES URGENT TREATMENT IN THE EMERGENCY DEPARTMENT. FURTHER EVALUATION AND TREATMENT OF YOUR CONDITION CAN WAIT UNTIL YOU ARE SEEN IN YOUR DOCTORS OFFICE WITHIN THE NEXT 1-2 DAYS. IT IS YOUR RESPONSIBILITY TO MAKE AN APPOINTMENT FOR FOLOW-UP CARE. IF YOU HAVE A PRIMARY DOCTOR --you should call your primary doctor and schedule an appointment IF YOU DO NOT HAVE A PRIMARY DOCTOR YOU CAN CALL OUR PHYSICIAN REFERRAL HOTLINE AT IF YOU CAN NOT AFFORD TO SEE A PHYSICIAN YOU CAN CHOSE FROM THE FOLLOWING [facility] [address] [facility] [address] [facility] [address] [facility] [address] [facility] [address] [facility]. [facility]. [address] Additional Instructions: Call your primary care doctor TOMORROW for an appointment during the next 1-2 days.See the doctor sooner or return here if your condition worsens before your appointment time. YAHIR LE PA-C May 20, 2019 13:53
== END 2019-05-14 23:15 | disposition home or self-care (01) ==
LOC: FTE 20:57
DX: J45.901 Unspecified asthma with (acute) exacerbation (principal); F17.210 Nicotine dependence, cigarettes, uncomplicated
CPT/HCPCS: 94644; J7512